=== PATIENT | female | born 1970 | race Caucasian/White ===

== ENCOUNTER 2016-12-25 22:45 | Emergency (ER) | payer MEDICAID ==
[2016-12-25] MEDS ORDERED: ACETAMINOPHEN 500 MG TABLET PO STA (23:01)
[2016-12-25] MEDS ORDERED: CYCLOBENZAPRINE 10 MG TABLET PO STA (23:01)
[2016-12-25] MEDS ORDERED: DEXAMETHASONE 10 MG/ML VIAL PO STA (23:01)
[2016-12-25] MEDS ORDERED: ACETAMINOPHEN 500 MG TABLET PO ONE (23:07)
[2016-12-25] MEDS ORDERED: CHERRY SYRUP 10 ML UDC PO ONE (23:08)
[2016-12-25] MEDS ORDERED: DEXAMETHASONE 10 MG/ML VIAL ONE (23:08)
[2016-12-25] MEDS ORDERED: CYCLOBENZAPRINE 10 MG TABLET PO ONE (23:08)
== END 2016-12-26 00:07 | disposition home or self-care (01) ==
DX: M54.42 Lumbago with sciatica, left side (principal); G89.29 Other chronic pain; M19.90 Unspecified osteoarthritis, unspecified site; M79.7 Fibromyalgia; I10 Essential (primary) hypertension; E11.9 Type 2 diabetes mellitus without complications; Z79.84 Long term (current) use of oral hypoglycemic drugs; Z86.711 Personal history of pulmonary embolism; F17.200 Nicotine dependence, unspecified, uncomplicated
CPT/HCPCS: 99283; A9270

== ENCOUNTER 2017-07-27 19:47 | Emergency (ER) | payer MEDICAID ==
--- NOTE | 2017-07-27 20:36 | ED Physician Documentation ---
History of Present Illness - Stated complaint Stated Complaint: LT LE PAIN - Chief complaint Chief Complaint: General - History obtained from History obtained from: Patient - History of Present Illness Timing: Yesterday Worsened by: palpation - Additonal information Additional information: c/o RLE focal redness, swelling, tenderness x 2 days without injury Review of Systems Constitutional: denies: Fever Skin: reports: Rash PD PAST MEDICAL HISTORY - Past Medical History Past Medical History: Yes Cardiovascular: Hypertension, Pulmonary embolism Respiratory: Other Endocrine/Autoimmune: Type 2 diabetes GI: GERD : None HEENT: None Psych: Depression, Anxiety, Bipolar disorder, Panic attacks, Post traumatic stress disorder Musculoskeletal: Osteoarthritis, Fibromyalgia Derm: None - Past Surgical History Past Surgical History: Yes 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, Other - Present Medications Home Medications: Ambulatory Orders Medication Instructions Recorded Confirmed Lisinopril [Zestril] 10 mg PO QPM 07/20/13 07/27/17 [place] Carbonate 900 mg PO QPM 07/20/13 07/27/17 Omeprazole 10 mg PO BID 07/20/13 07/27/17 Prazosin [Minipress] 8 mg PO QPM 07/20/13 07/27/17 DULoxetine [Cymbalta] 60 mg ORAL QPM 12/05/15 07/27/17 Simvastatin [Zocor] 10 mg PO DAILY 09/08/16 07/27/17 risperiDONE [RisperDAL] 1 mg PO DAILY 09/08/16 07/27/17 Amitriptyline [Elavil] 10 mg PO QPM 07/27/17 07/27/17 Clindamycin HCl 300 mg PO Q6HR 7 Days #28 capsule 07/27/17 Olanzapine [Olanzapine] 2.5 mg PO DAILY 07/27/17 07/27/17 Pregabalin [Lyrica] 150 mg PO TID 07/27/17 07/27/17 Propranolol HCl [Propranolol HCl 60 mg PO DAILY 07/27/17 07/27/17 ER] - Allergies Allergies/Adverse Reactions: Allergies Allergy/AdvReac Type Severity Reaction Status Date / Time Penicillins Allergy Severe Respiratory Verified 07/27/17 19:52 ketorolac tromethamine * Allergy Unknown Verified 07/27/17 19:52 [From Toradol] Sulfa (Sulfonamide Allergy Unknown Verified 07/27/17 19:52 Antibiotics) varenicline tartrate * AdvReac Severe Hallucinati Verified 07/27/17 19:52 [From Chantix] ons quetiapine fumarate * AdvReac Dizziness Verified 07/27/17 19:52 [From Seroquel] sertraline HCl * AdvReac Anxiety Verified 07/27/17 19:52 [From Zoloft] sucralose AdvReac SEVERE Verified 07/27/17 19:52 [From Splenda (sucralose)] CHANGE IN MOOD - Social History Does the pt smoke?: Yes Smoking Status: Current every day smoker Does the pt drink ETOH?: No Does the pt have substance abuse?: No - Immunizations Immunizations are current?: No Immunizations: TDAP >10years/unknown - POLST Patient has POLST: No POLST Status: Full Code PD ED PE NORMAL - Vitals Vital signs reviewed: Yes - General General: Alert and oriented X 3, No acute distress, Well developed/nourished PD ED PE EXPANDED - Extremities Extremities: Other (1-2 cm diameter induration on right posteromeidal aspect of calf with tenderness and erythema but no fluctuance or discharge) Results - Vitals Vitals: Oxygen O2 Source Room air PD MEDICAL DECISION MAKING - ED course Complexity details: considered differential, d/w patient Departure - Departure Disposition: 01 Home, Self Care Clinical Impression: Cellulitis Qualifiers: Site of cellulitis: extremity Site of cellulitis of extremity: lower extremity Laterality: right Qualified Code(s): L03.115 - Cellulitis of right lower limb Condition: Good Instructions: ED Infec Skin Cellulitis Follow-Up: Radha Cuenca DO [Primary Care Provider] - (3-5 days for recheck of the infection) Prescriptions: Clindamycin HCl 300 mg PO Q6HR 7 Days #28 capsule Discharge Date/Time: 07/27/17 21:08
[2017-07-27] MEDS ORDERED: CLINDAMYCIN 150 MG CAPSULE PO STA (20:50)
[2017-07-27] MEDS ORDERED: CLINDAMYCIN 150 MG CAPSULE PO ONE (21:01)
[2017-07-27 21:09] VITALS: BP 135/91
== END 2017-07-27 21:08 | disposition home or self-care (01) ==
LOC: ED 19:47
DX: L03.115 Cellulitis of right lower limb (principal); I10 Essential (primary) hypertension; E11.8 Type 2 diabetes mellitus with unspecified complications; Z86.711 Personal history of pulmonary embolism; F17.200 Nicotine dependence, unspecified, uncomplicated
CPT/HCPCS: 99283; A9270

== ENCOUNTER 2017-08-30 16:49 | Emergency (ER) | payer MEDICAID ==
[2017-08-30] MEDS ORDERED: DOXYCYCLINE 100 MG TABLET PO STA (18:08)
[2017-08-30] MEDS ORDERED: FLUCONAZOLE 100 MG TABLET PO STA (18:09)
--- NOTE | 2017-08-30 18:13 | ED Physician Documentation ---
PD HPI SKIN - Stated complaint Stated Complaint: ARMPIT/LEG BUMPS - Chief complaint Chief Complaint: Wound - History obtained from History obtained from: Patient - History of Present Illness Timing - onset: How many days ago (3) Timing - duration: Days (3) Timing - details: Gradual onset Pain level max: 6 Pain level now: 5 Improved by: Other (nothing) Worsened by (comment): COMMENT (nothing) Associated symptoms: No: Fever, Facial swelling Recently seen: Clinic - Additional information Additional information: Patient is a 47-year-old female presents to the emergency department with multiple complaints. She has a history of multiple recurrent abscesses, states that she recently finished a course of clindamycin for 2 small abscesses on her legs. Today she complains of swelling to the right axilla, left upper thigh and left perineal area. No fevers. No drainage. States that the swelling started 2-3 days ago. Also states that she believes the clindamycin gave her a yeast infection. States normally a dose of Diflucan works well for her. She also requests nystatin triamcinolone cream for her intertriginous folds. States normally her doctor rates as for her but she ran out. 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, Other - Present Medications Home Medications: Ambulatory Orders Medication Instructions Recorded Confirmed Lisinopril [Zestril] 10 mg PO QPM 07/20/13 08/30/17 [place] Carbonate 900 mg PO QPM 07/20/13 08/30/17 Omeprazole 10 mg PO BID 07/20/13 08/30/17 Prazosin [Minipress] 8 mg PO QPM 07/20/13 08/30/17 DULoxetine [Cymbalta] 60 mg ORAL QPM 12/05/15 08/30/17 Simvastatin [Zocor] 10 mg PO DAILY 09/08/16 08/30/17 risperiDONE [RisperDAL] 1 mg PO DAILY 09/08/16 08/30/17 Amitriptyline [Elavil] 10 mg PO QPM 07/27/17 08/30/17 Pregabalin [Lyrica] 150 mg PO TID 07/27/17 08/30/17 Propranolol HCl [Propranolol HCl 60 mg PO DAILY 07/27/17 08/30/17 ER] Doxycycline Hyclate 100 mg PO BID #20 capsule 08/30/17 Nystatin/Triamcin 1 applic TP BID PRN #1 oint...g. 08/30/17 [Nystatin-Triamcinolone Ointm] - Allergies Allergies/Adverse Reactions: Allergies Allergy/AdvReac Type Severity Reaction Status Date / Time Penicillins Allergy Severe Respiratory Verified 08/30/17 16:57 ketorolac tromethamine * Allergy Unknown Verified 08/30/17 16:57 [From Toradol] Sulfa (Sulfonamide Allergy Unknown Verified 08/30/17 16:57 Antibiotics) varenicline tartrate * AdvReac Severe Hallucinati Verified 08/30/17 16:57 [From Chantix] ons quetiapine fumarate * AdvReac Dizziness Verified 08/30/17 16:57 [From Seroquel] sertraline HCl * AdvReac Anxiety Verified 08/30/17 16:57 [From Zoloft] sucralose AdvReac SEVERE Verified 08/30/17 16:57 [From Splenda (sucralose)] CHANGE IN MOOD - Social History Does the pt smoke?: Yes Smoking Status: Current every day smoker Does the pt drink ETOH?: No Does the pt have substance abuse?: No - Immunizations Immunizations are current?: No Immunizations: TDAP >10years/unknown - POLST Patient has POLST: No POLST Status: Full Code PD ED PE NORMAL - Vitals Vital signs reviewed: Yes - General General: Alert and oriented X 3, No acute distress - HEENT HEENT: Moist mucous membranes - Neck Neck: Supple, no meningeal sign - Cardiac Cardiac: RRR, Strong equal pulses - Respiratory Respiratory: No respiratory distress - Abdomen Abdomen: Soft, Non tender, Non distended - Female 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 No fluctance, no pointing, no drainage. [id number] area to anterior, prox L thigh, no fluctuance, pointing or drainage. 1x0.5cm perineal area induration without fluctuance, pointing or drainage. ) - Neuro Neuro: Alert and oriented X 3 - Psych Psych: Normal mood, Normal affect Results - Vitals Vitals: Vital Signs - 24 hr 08/30/17 08/30/17 16:52 18:20 Temperature 36.3 C L 36.8 C Heart Rate 90 88 Respiratory 18 16 Rate Blood Pressure 122/85 H O2 Saturation 97 98 Oxygen O2 Source Room air PD MEDICAL DECISION MAKING - ED course Complexity details: reviewed old records, considered differential, d/w patient ED course: Patient is a 47-year-old female presents to the emergency department with multiple issues. All areas of induration or ultrasound of the bedside none revealed an abscess to drain. Patient also was given Diflucan for a vaginal yeast infection following clindamycin use. She states doxycycline has worked well for her MRSA in the past and this was started in the emergency department. Will also place on doxycycline for home. She is otherwise well-appearing, nontoxic. Afebrile. Patient counseled that these may coalescent abscesses that do need to be drained, but they do not need to be drained at this time. Patient counseled regarding signs and symptoms for which I believe and urgent re -evaluation would be necessary. Patient with good understanding of and agreement to plan and is comfortable going home at this time This document was made in part using voice recognition software. While efforts are made to proofread this document, sound alike and grammatical errors may occur. Departure - Departure Disposition: 01 Home, Self Care Clinical Impression: Abscess, Yeast infection Condition: Good Instructions: ED Staph Infec Abx Tx Only Follow-Up: Radha Cuenca DO [Primary Care Provider] - Within 3 Days (for recheck of wounds) Prescriptions: Doxycycline Hyclate 100 mg PO BID #20 capsule Nystatin/Triamcin [Nystatin-Triamcinolone Ointm] 1 applic TP BID PRN #1 oint...g. PRN Reason: rash Comments: Take all antibiotics until gone. Return if you worsen. Discharge Date/Time: 08/30/17 18:29
[2017-08-30 18:21] VITALS: BP 122/85
[2017-08-30] MEDS ORDERED: DOXYCYCLINE 100 MG TABLET PO ONE (18:28)
[2017-08-30] MEDS ORDERED: FLUCONAZOLE 100 MG TABLET ONE (18:28)
== END 2017-08-30 18:29 | disposition home or self-care (01) ==
LOC: ED 16:49
DX: L02.411 Cutaneous abscess of right axilla (principal); L02.416 Cutaneous abscess of left lower limb; L02.215 Cutaneous abscess of perineum; B37.3 Candidiasis of vulva and vagina; Z86.14 Personal history of Methicillin resistant Staphylococcus aureus infection; I10 Essential (primary) hypertension; E11.9 Type 2 diabetes mellitus without complications; K21.9 Gastro-esophageal reflux disease without esophagitis; M79.7 Fibromyalgia; M19.90 Unspecified osteoarthritis, unspecified site; Z86.711 Personal history of pulmonary embolism; F17.200 Nicotine dependence, unspecified, uncomplicated
CPT/HCPCS: 99283; A9270

== ENCOUNTER 2017-09-03 12:40 | Emergency (ER) | payer MEDICAID ==
--- NOTE | 2017-09-03 15:18 | ED Physician Documentation ---
PD HPI SKIN - Stated complaint Stated Complaint: ARMPIT PX - Chief complaint Chief Complaint: Wound - History obtained from History obtained from: Patient - History of Present Illness Timing - onset: How many weeks ago (1) Timing - duration: Weeks (1) Timing - details: Gradual onset, Still present Location: RUE Quality / character: Painful, Raised, Swelling. No: Draining Associated symptoms: Fever Similar symptoms before: Diagnosis (staph abscess) Recently seen: Emergency Dept - Additional information Additional information: 47-year-old female was seen in the emergency department here 4 days ago with staph abscesses that were not ripe she was placed on doxycycline as she has recently finished a course of clindamycin and this did not clear up the lesion in her right axilla. She did have ultrasound done that day demonstrating no evidence of fluid collections and she has not responded to the doxycycline. Review of Systems Constitutional: reports: Fever Eyes: denies: Decreased vision Ears: denies: Ear pain Nose: denies: Congestion Throat: denies: Sore throat Cardiac: denies: Chest pain / pressure Respiratory: denies: Cough GI: denies: Abdominal Pain, Nausea, Vomiting : denies: Dysuria, Frequency Skin: reports: Lesions. denies: Rash Musculoskeletal: reports: Extremity pain. 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, Other - Present Medications Home Medications: Ambulatory Orders Medication Instructions Recorded Confirmed Lisinopril [Zestril] 10 mg PO QPM 07/20/13 09/03/17 [place] Carbonate 900 mg PO QPM 07/20/13 09/03/17 Omeprazole 10 mg PO BID 07/20/13 08/30/17 Prazosin [Minipress] 8 mg PO QPM 07/20/13 09/03/17 DULoxetine [Cymbalta] 60 mg ORAL QPM 12/05/15 09/03/17 Simvastatin [Zocor] 10 mg PO DAILY 09/08/16 09/03/17 risperiDONE [RisperDAL] 1 mg PO DAILY 09/08/16 09/03/17 Pregabalin [Lyrica] 150 mg PO TID 07/27/17 09/03/17 Propranolol HCl [Propranolol HCl 60 mg PO DAILY 07/27/17 09/03/17 ER] Doxycycline Hyclate 100 mg PO BID #20 capsule 08/30/17 09/03/17 Nystatin/Triamcin 1 applic TP BID PRN #1 oint...g. 08/30/17 09/03/17 [Nystatin-Triamcinolone Ointm] Nortriptyline HCl 50 mg PO DAILY 09/03/17 09/03/17 - Allergies Allergies/Adverse Reactions: Allergies Allergy/AdvReac Type Severity Reaction Status Date / Time Penicillins Allergy Severe Respiratory Verified 09/03/17 12:47 ketorolac tromethamine * Allergy Unknown Verified 09/03/17 12:47 [From Toradol] Sulfa (Sulfonamide Allergy Unknown Verified 09/03/17 12:47 Antibiotics) varenicline tartrate * AdvReac Severe Hallucinati Verified 09/03/17 12:47 [From Chantix] ons quetiapine fumarate * AdvReac Dizziness Verified 09/03/17 12:47 [From Seroquel] sertraline HCl * AdvReac Anxiety Verified 09/03/17 12:47 [From Zoloft] sucralose AdvReac SEVERE Verified 09/03/17 12:47 [From Splenda (sucralose)] CHANGE IN MOOD - Social History Does the pt smoke?: Yes Smoking Status: Current every day smoker Does the pt drink ETOH?: No Does the pt have substance abuse?: No - Immunizations Immunizations are current?: No Immunizations: TDAP >10years/unknown - POLST Patient has POLST: No POLST Status: Full Code PD ED PE NORMAL - Vitals Vital signs reviewed: Yes (Hypertensive) - General General: No acute distress, Well developed/nourished - HEENT HEENT: Atraumatic, PERRL, EOMI - Neck Neck: Supple, no meningeal sign - Respiratory Respiratory: No respiratory distress - Derm Derm: Normal color, Warm and dry - Extremities Extremities: No deformity, Other (There is a tender indurated area in the right axilla that appears full there is no fluctuance to the area the area is tender. With bedside ultrasound the area is imaged and begins to drain spontaneously there is no deep fluid collection.) - Neuro Neuro: No motor deficit, No sensory deficit Eye Opening: Spontaneous Motor: Obeys Commands Verbal: Oriented GCS Score: 15 - Psych Psych: Normal mood, Normal affect Results - Vitals Vitals: Vital Signs - 24 hr 09/03/17 12:43 Temperature 35.8 C L Heart Rate 90 Respiratory 16 Rate Blood Pressure 143/103 H O2 Saturation 98 Oxygen O2 Source Room air Procedures - Abscess I&D (location) right axilla Preparation: Confirmed with ultrasound, Chlorhexadine, Lidocaine 1% Incision: Incised with scalpel, Purulent drainage (copious amounts of pus drained.), Loculations broken, Irrigated, Culture obtained Other: Pt tolerated well, Dressing applied, Antibiotic prescribed PD MEDICAL DECISION MAKING - ED course Complexity details: reviewed old records, reviewed results, re-evaluated patient , considered differential, d/w patient ED course: 47-year-old female with multiple staph abscesses has a ripened abscess in the right axilla this is incised and drained with good relief of pain to the patient. She did require Percocet 2 prior to the procedure with good results of her being able to tolerate this procedure. Departure - Departure Disposition: 01 Home, Self Care Clinical Impression: Abscess Condition: Stable Instructions: ED Abscess IandD Follow-Up: Radha Cuenca DO [Primary Care Provider] - Comments: Continue the doxycycline as previously and expect resolution of symptoms.
[2017-09-03] MEDS: HYDROcod/ACETAM 5/325 MG TABLET PO STA ×2 (15:20→15:23)
[2017-09-03] MEDS ORDERED: oxyCOD/ACETAMIN 5 MG/325 MG TABLET PO STA (15:23)
[2017-09-03] MEDS ORDERED: HYDROcod/ACETAM 5/325 MG TABLET ONE (15:24)
[2017-09-03] MEDS ORDERED: oxyCOD/ACETAMIN 5 MG/325 MG TABLET PO ONE (15:31)
[2017-09-03] MEDS ORDERED: LIDOCAINE 1% 2 ML VIAL ONE (15:57)
[2017-09-03 16:22] VITALS: BP 119/81
== END 2017-09-03 16:28 | disposition home or self-care (01) ==
LOC: ED 12:40
DX: L02.411 Cutaneous abscess of right axilla (principal); B95.8 Unspecified staphylococcus as the cause of diseases classified elsewhere; I10 Essential (primary) hypertension; E11.9 Type 2 diabetes mellitus without complications; Z86.711 Personal history of pulmonary embolism
CPT/HCPCS: 10060; 99283; A9270

== ENCOUNTER 2017-11-06 19:29 | Emergency (ER) | payer MEDICAID ==
[2017-11-06] MEDS ORDERED: BUFFERED LIDOCAINE 10 ML SYRINGE SUBQ STA (20:14)
--- NOTE | 2017-11-06 20:25 | ED Physician Documentation ---
History of Present Illness - Stated complaint Stated Complaint: SORE - Chief complaint Chief Complaint: General - History obtained from History obtained from: Patient - History of Present Illness Timing: Yesterday (Little over a days worth of an increasingly large painful lesion on the left labia consistent with an abscess. 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, Other - Present Medications Home Medications: Ambulatory Orders Medication Instructions Recorded Confirmed Lisinopril [Zestril] 10 mg PO QPM 07/20/13 09/03/17 [place] Carbonate 900 mg PO QPM 07/20/13 09/03/17 Omeprazole 10 mg PO BID 07/20/13 08/30/17 Prazosin [Minipress] 8 mg PO QPM 07/20/13 09/03/17 DULoxetine [Cymbalta] 60 mg ORAL QPM 12/05/15 09/03/17 Simvastatin [Zocor] 10 mg PO DAILY 09/08/16 09/03/17 risperiDONE [RisperDAL] 1 mg PO DAILY 09/08/16 09/03/17 Pregabalin [Lyrica] 150 mg PO TID 07/27/17 09/03/17 Propranolol HCl [Propranolol HCl 60 mg PO DAILY 07/27/17 09/03/17 ER] Doxycycline Hyclate 100 mg PO BID #20 capsule 08/30/17 09/03/17 Nystatin/Triamcin 1 applic TP BID PRN #1 oint...g. 08/30/17 09/03/17 [Nystatin-Triamcinolone Ointm] Nortriptyline HCl 50 mg PO DAILY 09/03/17 09/03/17 Doxycycline Hyclate 100 mg PO BID #14 tablet 11/06/17 Fluconazole [Diflucan] 150 mg PO ONCE #1 tablet 11/06/17 Oxycodone HCl/Acetaminophen 1 - 2 tab PO Q4H PRN #10 tablet 11/06/17 [Percocet 5-325 mg Tablet] - Allergies Allergies/Adverse Reactions: Allergies Allergy/AdvReac Type Severity Reaction Status Date / Time Penicillins Allergy Severe Respiratory Verified 11/06/17 19:41 ketorolac tromethamine * Allergy Unknown Verified 11/06/17 19:41 [From Toradol] Sulfa (Sulfonamide Allergy Unknown Verified 11/06/17 19:41 Antibiotics) varenicline tartrate * AdvReac Severe Hallucinati Verified 11/06/17 19:41 [From Chantix] ons quetiapine fumarate * AdvReac Dizziness Verified 11/06/17 19:41 [From Seroquel] sertraline HCl * AdvReac Anxiety Verified 11/06/17 19:41 [From Zoloft] sucralose AdvReac SEVERE Verified 11/06/17 19:41 [From Splenda (sucralose)] CHANGE IN MOOD - Social History Does the pt smoke?: Yes Smoking Status: Current every day smoker Does the pt drink ETOH?: No Does the pt have substance abuse?: No - Immunizations Immunizations are current?: No Immunizations: TDAP >10years/unknown - POLST Patient has POLST: No POLST Status: Full Code PD ED PE NORMAL - Vitals Vital signs reviewed: Yes - General General: Alert and oriented X 3, No acute distress - Female 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 No: Packed Other: Pt tolerated well, Dressing applied Departure - Departure Disposition: Home, Self Care Clinical Impression: Abscess Condition: Good Record reviewed to determine appropriate education?: Yes Instructions: ED Abscess IandD Prescriptions: Doxycycline Hyclate 100 mg PO BID #14 tablet Fluconazole [Diflucan] 150 mg PO ONCE #1 tablet Oxycodone HCl/Acetaminophen [Percocet 5-325 mg Tablet] 1 - 2 tab PO Q4H PRN #10 tablet PRN Reason: Pain Comments: Follow-up with your doctor for wound check on Friday. We are performing a wound culture, the results should be done in 48-72 hours. If antibiotic change is necessary we will call you. Return if worse in the meantime, especially if you develop increased pain, fevers, cannot keep down the medication. Otherwise follow-up with your physician in approximately 2-3 days. Your blood pressure was elevated today on check into the emergency department. This does not mean that you have hypertension, it is a common phenomenon to come to the emergency department and have elevated blood pressure. I recommend that you see your primary care physician within the week to have it rechecked when you are feeling better. Do not drink or drive while taking narcotic pain medication. Note that many narcotic pain relievers also contain Tylenol/acetaminophen. Please ensure that your total dose of acetaminophen from all sources does not exceed 3 g (3000 mg) per day. You may get constipated while on this medication. Take a stool softener such as Colace twice a day while you are on it. Also add an [id number] laxative such as senna or MiraLAX on any day that you do not have a bowel movement. If you received a narcotic pain medication or sedative while in the emergency department, do not drive for the next 24 hours.
[2017-11-06] MEDS ORDERED: oxyCODONE/ACET 5/325 Prepack 4 PO STA (20:43)
[2017-11-06] MEDS ORDERED: DOXYCYCLINE 100 MG TABLET PO STA (20:43)
[2017-11-06 20:52] VITALS: BP 135/93
== END 2017-11-06 21:10 | disposition home or self-care (01) ==
LOC: ED 19:29
DX: N76.4 Abscess of vulva (principal); I10 Essential (primary) hypertension; E11.9 Type 2 diabetes mellitus without complications; K21.9 Gastro-esophageal reflux disease without esophagitis; M79.7 Fibromyalgia; M19.90 Unspecified osteoarthritis, unspecified site; Z86.711 Personal history of pulmonary embolism; F17.200 Nicotine dependence, unspecified, uncomplicated
CPT/HCPCS: 56405; 87070; 87181; 87205; 99283; A9270

== ENCOUNTER 2017-12-05 15:09 | Outpatient (CLI) | payer MEDICAID | END 2017-12-05 15:10 | disposition critical access hospital (66) | LOC: EMS 15:09 | PROVIDERS: ATTEND Surgery | DX: M54.9 Dorsalgia, unspecified (principal) | CPT/HCPCS: A0425; A0429 ==

== ENCOUNTER 2017-12-05 15:27 | Emergency (ER) | payer MEDICAID ==
--- NOTE | 2017-12-05 16:16 | ED Physician Documentation ---
PD HPI BACK PAIN - Stated complaint Stated Complaint: BACK PX - Chief complaint Chief Complaint: Back Pain - History obtained from History obtained from: Patient - History of Present Illness Timing - onset: Today Timing - details: Still present Location: Lower, Left Quality: Spasm Associated symptoms: No: Fever, Weakness, Numbness, Incontinent of urine Worsened by: Movement Similar symptoms before: Diagnosis (Reports history of chronic low back pain, for which she takes diazepam 5 mg 3 times daily.) - Treatment prior to arrival Treatment prior to arrival: diazepam. - Additional information Additional information: The patient is a 47-year-old female with a history of diabetes and chronic low back pain, who presents with muscle spasms in her left lower back, radiating to her left leg. Her symptoms started this morning, and continue despite her daily treatment with diazepam. She denies fever, urinary incontinence, numbness or weakness. She reports having fallen 3 days ago, impacting her left side. Review of Systems Constitutional: denies: Fever Nose: denies: Congestion Throat: denies: Sore throat Cardiac: denies: Chest pain / pressure Respiratory: denies: Dyspnea, Cough GI: denies: Abdominal Pain, Nausea, Vomiting : denies: Dysuria, Incontinent Skin: denies: Rash Musculoskeletal: reports: Back pain. 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, Other - Present Medications Home Medications: Ambulatory Orders Medication Instructions Recorded Confirmed Lisinopril [Zestril] 10 mg PO QPM 07/20/13 09/03/17 [place] Carbonate 900 mg PO QPM 07/20/13 09/03/17 Omeprazole 10 mg PO BID 07/20/13 08/30/17 Prazosin [Minipress] 8 mg PO QPM 07/20/13 09/03/17 DULoxetine [Cymbalta] 60 mg ORAL QPM 12/05/15 09/03/17 Simvastatin [Zocor] 10 mg PO DAILY 09/08/16 09/03/17 risperiDONE [RisperDAL] 1 mg PO DAILY 09/08/16 09/03/17 Pregabalin [Lyrica] 150 mg PO TID 07/27/17 09/03/17 Propranolol HCl [Propranolol HCl 60 mg PO DAILY 07/27/17 09/03/17 ER] Doxycycline Hyclate 100 mg PO BID #20 capsule 08/30/17 09/03/17 Nystatin/Triamcin 1 applic TP BID PRN #1 oint...g. 08/30/17 09/03/17 [Nystatin-Triamcinolone Ointm] Nortriptyline HCl 50 mg PO DAILY 09/03/17 09/03/17 Doxycycline Hyclate 100 mg PO BID #14 tablet 11/06/17 Fluconazole [Diflucan] 150 mg PO ONCE #1 tablet 11/06/17 Oxycodone HCl/Acetaminophen 1 - 2 tab PO Q4H PRN #10 tablet 11/06/17 [Percocet 5-325 mg Tablet] Cyclobenzaprine [Flexeril] 10 mg PO TID PRN #20 tablet 12/05/17 - Allergies Allergies/Adverse Reactions: Allergies Allergy/AdvReac Type Severity Reaction Status Date / Time Penicillins Allergy Severe Respiratory Verified 12/05/17 15:36 ketorolac tromethamine * Allergy Unknown Verified 12/05/17 15:36 [From Toradol] Sulfa (Sulfonamide Allergy Unknown Verified 12/05/17 15:36 Antibiotics) varenicline tartrate * AdvReac Severe Hallucinati Verified 12/05/17 15:36 [From Chantix] ons quetiapine fumarate * AdvReac Dizziness Verified 12/05/17 15:36 [From Seroquel] sertraline HCl * AdvReac Anxiety Verified 12/05/17 15:36 [From Zoloft] sucralose AdvReac SEVERE Verified 12/05/17 15:36 [From Splenda (sucralose)] CHANGE IN MOOD - Social History Does the pt smoke?: Yes Smoking Status: Current every day smoker Does the pt drink ETOH?: No Does the pt have substance abuse?: No - Immunizations Immunizations are current?: No Immunizations: TDAP >10years/unknown - POLST Patient has POLST: No POLST Status: Full Code PD ED PE NORMAL - Vitals Vital signs reviewed: Yes (normal) - General General: Alert and oriented X 3, Other (Drowsy, but easily awakens. Overweight. ) - HEENT HEENT: Atraumatic - Neck Neck: No bony TTP, No adenopathy - Cardiac Cardiac: RRR, No murmur - Respiratory Respiratory: No respiratory distress, Clear bilaterally - Abdomen Abdomen: Soft, Non tender - Back Back: No CVA TTP, No spinal TTP, Other (There is tenderness to palpation in the left paralumbar musculature, with muscle spasms detected. There is no tenderness to palpation along the spinous processes.) - Derm Derm: No rash - Extremities Extremities: No tenderness to palpate, No edema, No calf tenderness / cord, Other (Straight leg raise test is negative bilaterally.) - Neuro Neuro: Alert and oriented X 3, No motor deficit, No sensory deficit, Other ( Deep tendon reflexes are 1+ and equal bilaterally at the patellar and Achilles tendons.) Results - Vitals Vitals: Oxygen O2 Source Room air - Labs Labs: Laboratory Tests 12/05/17 12/05/17 17:08 17:40 POC Whole Bld Glucose 301 H Urine Color YELLOW Urine Clarity CLEAR Urine pH 6.0 Ur Specific [place] 1.025 Urine Protein NEGATIVE Urine Glucose (UA) 500 H Urine Ketones NEGATIVE Urine Occult Blood NEGATIVE Urine Nitrite NEGATIVE Urine Bilirubin NEGATIVE Urine Urobilinogen 0.2 (NORMAL) Ur Leukocyte Esterase NEGATIVE Ur Microscopic Review NOT INDICATED Urine Culture Comments NOT INDICATED PD MEDICAL DECISION MAKING - ED course Complexity details: reviewed old records, reviewed results, re-evaluated patient , considered differential, d/w patient ED course: The patient's presentation is consistent with acute exacerbation of low back pain, with muscle spasms. There is no evidence to suggest an acute vertebral injury, epidural abscess, cauda equina syndrome, or spinal stenosis. Urinalysis is negative except for elevated glucosuria. Fingerstick blood sugar is elevated at 301. Given the patient's current drowsiness, no further medication was administered in the emergency department. I discussed with her symptomatic treatment, treatment for her hyperglycemia, outpatient follow-up, as well as potentially worrisome signs or symptoms that should prompt reevaluation is needed emergency department. She is being discharged with prescription for Flexeril. Departure - Departure Disposition: 01 Home, Self Care Clinical Impression: Spasm of back muscles Diabetes mellitus with hyperglycemia Qualifiers: Diabetes mellitus type: type 2 Diabetes mellitus halfway insulin use: without halfway use Qualified Code(s): E11.65 - Type 2 diabetes mellitus with hyperglycemia Condition: Stable Instructions: ED Spasm Back No Trauma Follow-Up: Radha Cuenca DO [Primary Care Provider] - Prescriptions: Cyclobenzaprine [Flexeril] 10 mg PO TID PRN #20 tablet PRN Reason: Spasms Comments: Apply ice pack to your lower back intermittently for the next 3 days. You can take Robaxin as prescribed if needed for muscle spasms. Follow up with your primary physician within 1-2 weeks. Call to schedule an appointment. Avoid eating candy or other sugary foods. Return to the emergency department if you develop increasing back pain, urinary incontinence, or otherwise worsening symptoms. Discharge Date/Time: 12/05/17 17:57
[2017-12-05 17:13] LABS: BILIRUBIN,URINE NEGATIVE (NEGATIVE); GLUCOSE, URINE (UA) 500 mg/dL (NEGATIVE); KETONES,URINE (UA) NEGATIVE (NEGATIVE); LEUKOCYTE ESTERASE, URINE NEGATIVE (NEGATIVE); NITRITE,URINE NEGATIVE (NEGATIVE); OCCULT BLOOD,URINE NEGATIVE (NEGATIVE); PROTEIN,URINE NEGATIVE (NEGATIVE); UROBILINOGEN,URINE 0.2 (NORMAL) E.U./dL (NORMAL)
[2017-12-05 17:15] LABS: CLARITY,URINE CLEAR (CLEAR)
[2017-12-05 17:49] VITALS: BP 124/88
== END 2017-12-05 17:57 | disposition home or self-care (01) ==
LOC: EDUNIT# → ED 15:27
DX: M62.830 Muscle spasm of back (principal); E11.65 Type 2 diabetes mellitus with hyperglycemia; I10 Essential (primary) hypertension; F31.9 Bipolar disorder, unspecified; Z86.711 Personal history of pulmonary embolism; F17.200 Nicotine dependence, unspecified, uncomplicated
CPT/HCPCS: 81001; 81003; 87086; 99283; 99284

== ENCOUNTER 2018-01-29 16:47 | Emergency (ER) | payer MEDICAID ==
[2018-01-29] MEDS ORDERED: PHENAZOPYRIDINE 100 MG TABLET PO STA (17:00)
--- NOTE | 2018-01-29 17:02 | ED Physician Documentation ---
History of Present Illness - Stated complaint Stated Complaint: FEMALE /R FOOT PX - Chief complaint Chief Complaint: General - History obtained from History obtained from: Patient - History of Present Illness Timing: Other (She has 2 chief complaints, first she has had urinary dysuria and frequency today without flank pain fevers or nausea. Secondly she has had lateral right foot pain for last 2 weeks without specific trauma, it hurts to walk. She is able to walk though. She has not had trouble with that foot before. 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, Other - Present Medications Home Medications: Ambulatory Orders Medication Instructions Recorded Confirmed Lisinopril [Zestril] 10 mg PO QPM 07/20/13 09/03/17 [place] Carbonate 900 mg PO QPM 07/20/13 09/03/17 Omeprazole 10 mg PO BID 07/20/13 08/30/17 Prazosin [Minipress] 8 mg PO QPM 07/20/13 09/03/17 DULoxetine [Cymbalta] 60 mg ORAL QPM 12/05/15 09/03/17 Simvastatin [Zocor] 10 mg PO DAILY 09/08/16 09/03/17 risperiDONE [RisperDAL] 1 mg PO DAILY 09/08/16 09/03/17 Pregabalin [Lyrica] 150 mg PO TID 07/27/17 09/03/17 Propranolol HCl [Propranolol HCl 60 mg PO DAILY 07/27/17 09/03/17 ER] Nystatin/Triamcin 1 applic TP BID PRN #1 oint...g. 08/30/17 09/03/17 [Nystatin-Triamcinolone Ointm] Nortriptyline HCl 50 mg PO DAILY 09/03/17 09/03/17 Oxycodone HCl/Acetaminophen 1 - 2 tab PO Q4H PRN #10 tablet 11/06/17 [Percocet 5-325 mg Tablet] Cyclobenzaprine [Flexeril] 10 mg PO TID PRN #20 tablet 12/05/17 Nitrofurantoin Monohyd/M-Cryst 1 tab PO BID 5 Days capsule 01/29/18 [Macrobid 100 mg Capsule] Phenazopyridine HCl [Pyridium] 200 mg PO TID #6 tablet 01/29/18 - Allergies Allergies/Adverse Reactions: Allergies Allergy/AdvReac Type Severity Reaction Status Date / Time Penicillins Allergy Severe Respiratory Verified 01/29/18 16:56 ketorolac tromethamine * Allergy Unknown Verified 01/29/18 16:56 [From Toradol] Sulfa (Sulfonamide Allergy Unknown Verified 01/29/18 16:56 Antibiotics) varenicline tartrate * AdvReac Severe Hallucinati Verified 01/29/18 16:56 [From Chantix] ons quetiapine fumarate * AdvReac Dizziness Verified 01/29/18 16:56 [From Seroquel] sertraline HCl * AdvReac Anxiety Verified 01/29/18 16:56 [From Zoloft] sucralose AdvReac SEVERE Verified 01/29/18 16:56 [From Splenda (sucralose)] CHANGE IN MOOD - Social History Does the pt smoke?: Yes Smoking Status: Current every day smoker Does the pt drink ETOH?: No Does the pt have substance abuse?: No - Immunizations Immunizations are current?: No Immunizations: TDAP >10years/unknown - POLST Patient has POLST: No POLST Status: Full Code PD ED PE NORMAL - Vitals Vital signs reviewed: Yes - General General: Alert and oriented X 3, No acute distress - Abdomen Abdomen: Soft, Non tender - Back Back: No CVA TTP, No spinal TTP - Extremities Extremities: Other (She is tender over the lateral right foot, kind of over the distal fifth metatarsal and pain with inversion of the foot consistent mostly with a tendinitis. There is no warmth or redness. No limited range of motion.) - Neuro Neuro: Alert and oriented X 3, Normal speech Results - Vitals Vitals: Vital Signs - 24 hr 01/29/18 01/29/18 16:51 18:14 Temperature 36.8 C 36.7 C Heart Rate 88 81 Respiratory 16 16 Rate Blood Pressure 128/88 H 138/98 H O2 Saturation 97 97 Oxygen O2 Source Room air - Labs Labs: Laboratory Tests 01/29/18 01/29/18 17:08 17:53 POC Whole Bld Glucose 220 H Urine Color YELLOW Urine Clarity SL. CLOUDY Urine pH 6.0 Ur Specific [place] 1.025 Urine Protein 30 H Urine Glucose (UA) 100 H Urine Ketones TRACE Urine Occult Blood LARGE H Urine Nitrite NEGATIVE Urine Bilirubin NEGATIVE Urine Urobilinogen 0.2 (NORMAL) Ur Leukocyte Esterase NEGATIVE Urine RBC 11-25 H Urine WBC 4-5 Ur Squamous Epith Cells RARE Squamous Urine Bacteria None Seen Ur Microscopic Review INDICATED Urine Culture Comments NOT INDICATED - Rads (name of study) R foot 3v Radiology: EMP read contemporaneously (Cortical thickening of the third and fourth metatarsal diaphysis consistent with stress response.) PD MEDICAL DECISION MAKING - ED course ED course: She has kind of typical cystitis but an atypical urine, also stress fracture of the right foot, she refused to be nonweightbearing or wear a boot, we settled on a shoe, she understands that her recovery may be prolonged and incomplete since she is not following standard of care. 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 Return if worse. Discharge Date/Time: 01/29/18 18:15
[2018-01-29 17:11] LABS: BILIRUBIN,URINE NEGATIVE (NEGATIVE); GLUCOSE, URINE (UA) 100 mg/dL (NEGATIVE); KETONES,URINE (UA) TRACE mg/dL (NEGATIVE); LEUKOCYTE ESTERASE, URINE NEGATIVE (NEGATIVE); NITRITE,URINE NEGATIVE (NEGATIVE); OCCULT BLOOD,URINE LARGE (NEGATIVE); PROTEIN,URINE 30 mg/dL (NEGATIVE); UROBILINOGEN,URINE 0.2 (NORMAL) E.U./dL (NORMAL)
[2018-01-29 17:12] LABS: CLARITY,URINE SL. CLOUDY (CLEAR)
[2018-01-29 17:30] LABS: BACTERIA,URINE None Seen /HPF (None Seen); SQUAMOUS EPITHELIAL CELL,UR RARE Squamous (<= Few)
--- NOTE | 2018-01-29 18:01 | XRAY Preliminary Report ---
Exam: XR FOOT 3 VIEW RT IMPRESSION: 1. No acute fracture. 2. Cortical thickening of the third and fourth metatarsal diaphysis suggesting a chronic stress respo nse. [facility] SITE ID: [id number]
--- NOTE | 2018-01-29 18:01 | XRAY Report ---
EXAM: RIGHT FOOT RADIOGRAPHY EXAM DATE: 01/29/2018 05:43 PM. CLINICAL HISTORY: Foot pain, lateral. COMPARISON: None. TECHNIQUE: 3 views. FINDINGS: Bones: There is cortical thickening of the third and fourth metatarsal diaphysis. There is no acute f racture. Joints: Joint space and alignment appears satisfactory. Soft Tissues: There is a small plantar calcaneal spur. IMPRESSION: 1. No acute fracture. 2. Cortical thickening of the third and fourth metatarsal diaphysis suggesting a chronic stress respo nse. [facility] Referring Provider Line: [phone] SITE ID: [id number]
[2018-01-29] MEDS ORDERED: NITROFURANTOIN MACRO 100 MG CAPSULE PO STA (18:03)
[2018-01-29 18:16] VITALS: BP 138/98
== END 2018-01-29 18:15 | disposition home or self-care (01) ==
LOC: ED 16:47
DX: N30.90 Cystitis, unspecified without hematuria (principal); S92.901A Unspecified fracture of right foot, initial encounter for closed fracture; X58.XXXA Exposure to other specified factors, initial encounter; I10 Essential (primary) hypertension; E11.9 Type 2 diabetes mellitus without complications; Z86.711 Personal history of pulmonary embolism
CPT/HCPCS: 73630; 81001; 99283; 99284; A9270; 81003; 87086

== ENCOUNTER 2018-02-13 16:09 | Emergency (ER) | payer MEDICAID ==
[2018-02-13 16:18] VITALS: BP 121/88
[2018-02-13] MEDS ORDERED: LIDOCAINE 2%-EPI 1:100000 20 ML MDV SUBQ STA (16:56)
--- NOTE | 2018-02-13 16:57 | ED Physician Documentation ---
History of Present Illness - Stated complaint Stated Complaint: RT ARM PIT LUMP - Chief complaint Chief Complaint: Wound - History obtained from History obtained from: Patient - History of Present Illness Timing: Yesterday Pain level max: 9 Pain level now: 9 Improved by: nothing Worsened by: palpation, movement - Additonal information Additional information: States R axillary abscess x 2 days. No fevers. No vomiting. 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, Other - Present Medications Home Medications: Ambulatory Orders Medication Instructions Recorded Confirmed Lisinopril [Zestril] 10 mg PO QPM 07/20/13 09/03/17 [place] Carbonate 900 mg PO QPM 07/20/13 09/03/17 Omeprazole 10 mg PO BID 07/20/13 08/30/17 Prazosin [Minipress] 8 mg PO QPM 07/20/13 09/03/17 DULoxetine [Cymbalta] 60 mg ORAL QPM 12/05/15 09/03/17 Simvastatin [Zocor] 10 mg PO DAILY 09/08/16 09/03/17 risperiDONE [RisperDAL] 1 mg PO DAILY 09/08/16 09/03/17 Pregabalin [Lyrica] 150 mg PO TID 07/27/17 09/03/17 Propranolol HCl [Propranolol HCl 60 mg PO DAILY 07/27/17 09/03/17 ER] Nystatin/Triamcin 1 applic TP BID PRN #1 oint...g. 08/30/17 09/03/17 [Nystatin-Triamcinolone Ointm] Nortriptyline HCl 50 mg PO DAILY 09/03/17 09/03/17 Cyclobenzaprine [Flexeril] 10 mg PO TID PRN #20 tablet 12/05/17 Nitrofurantoin Monohyd/M-Cryst 1 tab PO BID 5 Days capsule 01/29/18 [Macrobid 100 mg Capsule] ARIPiprazole [Abilify] mg PO DAILY 02/13/18 Doxycycline Hyclate 100 mg PO BID #14 capsule 02/13/18 Insulin Glargine [Lantus Solostar] 22 unit 02/13/18 - Allergies Allergies/Adverse Reactions: Allergies Allergy/AdvReac Type Severity Reaction Status Date / Time Penicillins Allergy Severe Respiratory Verified 02/13/18 16:18 ketorolac tromethamine * Allergy Unknown Verified 02/13/18 16:18 [From Toradol] Sulfa (Sulfonamide Allergy Unknown Verified 02/13/18 16:18 Antibiotics) varenicline tartrate * AdvReac Severe Hallucinati Verified 02/13/18 16:18 [From Chantix] ons quetiapine fumarate * AdvReac Dizziness Verified 02/13/18 16:18 [From Seroquel] sertraline HCl * AdvReac Anxiety Verified 02/13/18 16:18 [From Zoloft] sucralose AdvReac SEVERE Verified 02/13/18 16:18 [From Splenda (sucralose)] CHANGE IN MOOD - Social History Does the pt smoke?: Yes Smoking Status: Current every day smoker Does the pt drink ETOH?: No Does the pt have substance abuse?: No - Immunizations Immunizations are current?: Yes Immunizations: TDAP >10years/unknown - POLST Patient has POLST: No POLST Status: Full Code PD ED PE NORMAL - Vitals Vital signs reviewed: Yes - General General: Alert and oriented X 3, No acute distress - Derm Derm: Warm and dry - Extremities Extremities: Other (R axilla - 2x2cm indurated area with erythema. NVI) - Neuro Neuro: Alert and oriented X 3 - Psych Psych: Normal mood, Normal affect Results - Vitals Vitals: Vital Signs - 24 hr 02/13/18 16:16 Temperature 36.7 C Heart Rate 85 Respiratory 16 Rate Blood Pressure 121/88 H O2 Saturation 99 Oxygen O2 Source Room air - Labs Labs: Microbiology 02/13/18 17:20 Wound Culture - Preliminary Abscess Procedures - Abscess I&D (location) R axillary abscess Preparation: Confirmed with ultrasound, Lidocaine 2 %, With epi Incision: Incised with scalpel, Needle aspiration, Purulent drainage, Loculations broken, Irrigated, Culture obtained. No: Packed (patient refused packing) Other: Pt tolerated well, Dressing applied, Antibiotic prescribed PD MEDICAL DECISION MAKING - ED course Complexity details: reviewed results, re-evaluated patient, considered differential, d/w patient ED course: Patient is a 47-year-old female who presents to the emergency department with a right axillary abscess. This was incised and drained. Tolerated well. Wound culture obtained. Will place on doxycycline given her other medications and allergies. Will have her follow-up with her PCP for repeat evaluation. We also discussed seeing a surgeon for possible hidradenitis suppurativa. Patient counseled regarding signs and symptoms for which I believe and urgent re- evaluation would be necessary. Patient with good understanding of and agreement to plan and is comfortable going home at this time This document was made in part using voice recognition software. While efforts are made to proofread this document, sound alike and grammatical errors may occur. Departure - Departure Disposition: 01 Home, Self Care Clinical Impression: Abscess of axilla, right Condition: Good Instructions: ED Abscess IandD Follow-Up: Radha Cuenca DO [Primary Care Provider] - Within 3 Days (for wound check) Prescriptions: Doxycycline Hyclate 100 mg PO BID #14 capsule Comments: Take all antibiotics until gone. Return if you worsen. You should have a wound check in 2-3 days with your doctor. Discharge Date/Time: 02/13/18 17:26
[2018-02-13] MEDS ORDERED: LIDOCAINE 2%-EPI 1:100000 20 ML MDV ONE (17:07)
== END 2018-02-13 17:26 | disposition home or self-care (01) ==
LOC: ED 16:09
DX: L02.411 Cutaneous abscess of right axilla (principal); I10 Essential (primary) hypertension; E11.9 Type 2 diabetes mellitus without complications; F17.200 Nicotine dependence, unspecified, uncomplicated; Z79.4 Long term (current) use of insulin; Z86.711 Personal history of pulmonary embolism
CPT/HCPCS: 10060; 87070; 87205; 99283

== ENCOUNTER 2018-02-15 14:36 | Outpatient (CLI) | payer MEDICAID | END 2018-02-15 14:37 | disposition critical access hospital (66) | LOC: EMS 14:36 | PROVIDERS: ATTEND Surgery | DX: R45.851 Suicidal ideations (principal) | CPT/HCPCS: A0425; A0429 ==

== ENCOUNTER 2018-02-15 14:57 | Emergency (ER) | payer MEDICAID ==
[2018-02-15 15:04] VITALS: BP 133/92
[2018-02-15 15:39] LABS: BASOPHILS # (AUTO) 0.2 10^3/uL (0.0-0.1); BASOPHILS % (AUTO) 1.4 %; EOSINOPHILS # (AUTO) 0.4 10^3/uL (0.0-0.7); EOSINOPHILS % (AUTO) 2.9 %; HGB - HEMOGLOBIN 13.6 g/dL (12.0-16.0); LYMPHOCYTES # (AUTO) 3.5 10^3/uL (1.5-3.5); LYMPHOCYTES % (AUTO) 27.2 %; MEAN CORPUSCULAR HEMOGLOBIN 26.2 pg (27.0-31.0); MEAN CORPUSCULAR HGB CONC 31.6 g/dL (32.0-36.0); MEAN CORPUSCULAR VOLUME 82.8 fL (81.0-99.0); MEAN PLATELET VOLUME 10.2 fL (7.9-10.8); MONOCYTES # (AUTO) 0.6 10^3/uL (0.0-1.0); MONOCYTES % (AUTO) 4.5 %; NEUTROPHILS # (AUTO) 8.2 10^3/uL (1.5-6.6); PLT - PLATELET COUNT 228 10^3/uL (130-450); RED CELL DISTRIBUTION WIDTH 14.1 % (12.0-15.0); WHITE BLOOD COUNT 12.7 x10^3/uL (4.8-10.8)
[2018-02-15 15:54] LABS: ALBUMIN/GLOBULIN RATIO 1.1 (1.0-2.2); ALKALINE PHOSPHATASE 48 IU/L (42-121); ALT ALANINE AMINOTRANSFERASE 21 IU/L (10-60); AST ASPARTATE AMINOTRANSFERASE 20 IU/L (10-42); BILIRUBIN,TOTAL 0.3 mg/dL (0.2-1.0); BUN - BLOOD UREA NITROGEN 9 mg/dL (6-20); CALCIUM 9.2 mg/dL (8.5-10.3); CARBON DIOXIDE - CO2 23 mmol/L (21-32); CHLORIDE 109 mmol/L (101-111); CREATININE 0.7 mg/dL (0.4-1.0); GFR - MDRD 89 (>89); GLUCOSE 177 mg/dL (70-100); LIPASE 35 U/L (22-51); SALICYLATE < 6.0 mg/dL; SODIUM 140 mmol/L (135-145); TOTAL PROTEIN 7.5 g/dL (6.7-8.2)
[2018-02-15 15:55] LABS: ACETAMINOPHEN < 10 ug/mL (10-30)
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
== END 2018-02-15 16:49 | disposition home or self-care (01) ==
LOC: EDUNIT# → ED 14:57
DX: F31.9 Bipolar disorder, unspecified (principal); I10 Essential (primary) hypertension; E11.9 Type 2 diabetes mellitus without complications; F17.200 Nicotine dependence, unspecified, uncomplicated; Z79.4 Long term (current) use of insulin; Z86.711 Personal history of pulmonary embolism
CPT/HCPCS: 36415; 80053; 80307; 80320; 80329; 83690; 85025; 99282; 99283

== ENCOUNTER 2018-02-19 12:01 | Emergency (ER) | payer MEDICAID ==
--- NOTE | 2018-02-19 12:54 | ED Physician Documentation ---
PD HPI FOCAL NEURO - Stated complaint Stated Complaint: WHOLE BODY TINGLING - Chief complaint Chief Complaint: General - History obtained from History obtained from: Patient - History of Present Illness Timing - onset: Yesterday (Starting abruptly yesterday she felt like it was raining on her arms even though it was not. Since then she has had persistent paresthesias that feel like everything is falling asleep and is starting to come back a week. No recent changes in her medications. Her blood sugars have been relatively controlled. There is some upper back pain with this but no neck pain or headache.) Review of Systems Constitutional: reports: Reviewed and negative Nose: denies: Rhinorrhea / runny nose, Congestion Cardiac: denies: Chest pain / pressure, Palpitations Respiratory: denies: Dyspnea, Cough GI: denies: Abdominal Pain PD PAST MEDICAL HISTORY - Past Medical History Cardiovascular: Hypertension, Pulmonary embolism Respiratory: Other Endocrine/Autoimmune: Type 2 diabetes GI: GERD : None HEENT: None Psych: Depression, Anxiety, Bipolar disorder, Panic attacks, Post traumatic stress disorder Musculoskeletal: Osteoarthritis, Fibromyalgia Derm: None - Past Surgical History Past Surgical History: Yes 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, Other - Present Medications Home Medications: Ambulatory Orders Medication Instructions Recorded Confirmed Lisinopril [Zestril] 10 mg PO QPM 07/20/13 09/03/17 [place] Carbonate 900 mg PO QPM 07/20/13 09/03/17 Omeprazole 10 mg PO BID 07/20/13 08/30/17 Prazosin [Minipress] 8 mg PO QPM 07/20/13 09/03/17 DULoxetine [Cymbalta] 60 mg ORAL QPM 12/05/15 09/03/17 Simvastatin [Zocor] 10 mg PO DAILY 09/08/16 09/03/17 risperiDONE [RisperDAL] 1 mg PO DAILY 09/08/16 09/03/17 Pregabalin [Lyrica] 150 mg PO TID 07/27/17 09/03/17 Propranolol HCl [Propranolol HCl 60 mg PO DAILY 07/27/17 09/03/17 ER] Nystatin/Triamcin 1 applic TP BID PRN #1 oint...g. 08/30/17 09/03/17 [Nystatin-Triamcinolone Ointm] Nortriptyline HCl 50 mg PO DAILY 09/03/17 09/03/17 Cyclobenzaprine [Flexeril] 10 mg PO TID PRN #20 tablet 12/05/17 Nitrofurantoin Monohyd/M-Cryst 1 tab PO BID 5 Days capsule 01/29/18 [Macrobid 100 mg Capsule] ARIPiprazole [Abilify] mg PO DAILY 02/13/18 Doxycycline Hyclate 100 mg PO BID #14 capsule 02/13/18 Insulin Glargine [Lantus Solostar] 22 unit 02/13/18 - Allergies Allergies/Adverse Reactions: Allergies Allergy/AdvReac Type Severity Reaction Status Date / Time Penicillins Allergy Severe Respiratory Verified 02/19/18 12:16 ketorolac tromethamine * Allergy Unknown Verified 02/19/18 12:16 [From Toradol] Sulfa (Sulfonamide Allergy Unknown Verified 02/19/18 12:16 Antibiotics) varenicline tartrate * AdvReac Severe Suicidal Verified 02/19/18 12:16 [From Chantix] ideations quetiapine fumarate * AdvReac Dizziness Verified 02/19/18 12:16 [From Seroquel] sertraline HCl * AdvReac Shakes Verified 02/19/18 12:16 [From Zoloft] sucralose AdvReac SEVERE Verified 02/19/18 12:16 [From Splenda (sucralose)] CHANGE IN MOOD - Social History Does the pt smoke?: Yes Smoking Status: Current every day smoker Does the pt drink ETOH?: No Does the pt have substance abuse?: No - Immunizations Immunizations are current?: Yes Immunizations: TDAP >10years/unknown - POLST Patient has POLST: No POLST Status: Full Code PD ED PE NORMAL - Vitals Vital signs reviewed: Yes - General General: Alert and oriented X 3, No acute distress, Other (She does not appear anxious or panicky, she is slightly tremulous in the upper extremities.) - HEENT HEENT: PERRL, EOMI - Neck Neck: Supple, no meningeal sign, No bony TTP - Cardiac Cardiac: RRR, No murmur - Respiratory Respiratory: No respiratory distress, Clear bilaterally - Abdomen Abdomen: Normal bowel sounds, Soft, Non tender - Derm Derm: Normal color, Warm and dry - Neuro Neuro: Alert and oriented X 3, 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 She has diminished sharp versus dull discrimination especially in the hands bilaterally but also affects the feet and to a lesser extent of the face.) Eye Opening: Spontaneous Motor: Obeys Commands Verbal: Oriented GCS Score: 15 Results - Vitals Vitals: Vital Signs - 24 hr 02/19/18 12:11 Temperature 36.6 C Heart Rate 89 Respiratory 18 Rate Blood Pressure 128/83 H O2 Saturation 94 Oxygen O2 Source Room air - Labs Labs: Laboratory Tests 02/19/18 02/19/18 02/19/18 12:15 12:57 12:57 WBC 13.3 H RBC 4.71 Hgb 12.7 Hct 38.7 MCV 82.1 MCH 26.9 L MCHC 32.8 RDW 13.9 Plt Count 219 MPV 9.8 Neut # 9.3 H Lymph # 3.1 [place] # 0.6 Eos # 0.3 Baso # 0.1 Absolute Nucleated RBC 0.01 Nucleated RBC % 0.1 VBG pH VBG pCO2 VBG pO2 VBG HCO3 VBG Total CO2 VBG O2 Saturation VBG Base Excess Sodium 136 Potassium 3.8 Chloride 105 Carbon Dioxide 25 Anion Gap 6.0 BUN 11 Creatinine 0.8 Estimated GFR (MDRD) 76 L Glucose 159 H Calcium 8.9 Total Bilirubin 0.4 AST 17 ALT 19 Alkaline Phosphatase 42 Total Protein 6.7 Albumin 3.8 Globulin 2.9 Albumin/Globulin Ratio 1.3 Lipase 37 Urine Color YELLOW Urine Clarity CLEAR Urine pH 6.0 Ur Specific [place] 1.010 Urine Protein NEGATIVE Urine Glucose (UA) NEGATIVE Urine Ketones NEGATIVE Urine Occult Blood NEGATIVE Urine Nitrite NEGATIVE Urine Bilirubin NEGATIVE Urine Urobilinogen 0.2 (NORMAL) Ur Leukocyte Esterase NEGATIVE Ur Microscopic Review NOT INDICATED Urine Culture Comments NOT INDICATED 02/19/18 12:57 WBC RBC Hgb Hct MCV MCH MCHC RDW Plt Count MPV Neut # Lymph # [place] # Eos # Baso # Absolute Nucleated RBC Nucleated RBC % VBG pH 7.333 VBG pCO2 51.2 H VBG pO2 22.0 L VBG HCO3 26.6 VBG Total CO2 28.1 VBG O2 Saturation 43.0 L VBG Base Excess 0.0 Sodium Potassium Chloride Carbon Dioxide Anion Gap BUN Creatinine Estimated GFR (MDRD) Glucose Calcium Total Bilirubin AST ALT Alkaline Phosphatase Total Protein Albumin Globulin Albumin/Globulin Ratio Lipase Urine Color Urine Clarity Urine pH Ur Specific [place] Urine Protein Urine Glucose (UA) Urine Ketones Urine Occult Blood Urine Nitrite Urine Bilirubin Urine Urobilinogen Ur Leukocyte Esterase Ur Microscopic Review Urine Culture Comments PD MEDICAL DECISION MAKING - ED course ED course: 48-year-old woman with acute paresthesias, the differential diagnosis is broad. Unfortunately we cannot do an MRI on her, she has unremovable steel tongue stud. No findings on diagnostics here and she does not seem disabled by this. Close follow-up precautions were given. Departure - Departure Disposition: 01 Home, Self Care Clinical Impression: Paresthesia, Essential hypertension Condition: Good Record reviewed to determine appropriate education?: Yes Instructions: ED Paraesthesias Follow-Up: Tootie Cobian MD [Physician No Access] - Comments: Please return if worsening or if any new symptoms develop, if symptoms are simply persistent I recommend following up with a neurologist such as the one listed on this form.
[2018-02-19 13:07] LABS: BASOPHILS # (AUTO) 0.1 10^3/uL (0.0-0.1); BASOPHILS % (AUTO) 0.6 %; EOSINOPHILS # (AUTO) 0.3 10^3/uL (0.0-0.7); EOSINOPHILS % (AUTO) 2.3 %; HGB - HEMOGLOBIN 12.7 g/dL (12.0-16.0); LYMPHOCYTES # (AUTO) 3.1 10^3/uL (1.5-3.5); MEAN CORPUSCULAR HEMOGLOBIN 26.9 pg (27.0-31.0); MEAN CORPUSCULAR HGB CONC 32.8 g/dL (32.0-36.0); MEAN CORPUSCULAR VOLUME 82.1 fL (81.0-99.0); MEAN PLATELET VOLUME 9.8 fL (7.9-10.8); MONOCYTES # (AUTO) 0.6 10^3/uL (0.0-1.0); MONOCYTES % (AUTO) 4.6 %; NEUTROPHILS # (AUTO) 9.3 10^3/uL (1.5-6.6); NEUTROPHILS % (AUTO) 69.5 %; PLT - PLATELET COUNT 219 10^3/uL (130-450); RED BLOOD COUNT 4.71 10^6/uL (4.20-5.40); RED CELL DISTRIBUTION WIDTH 13.9 % (12.0-15.0); WHITE BLOOD COUNT 13.3 x10^3/uL (4.8-10.8)
[2018-02-19 13:11] LABS: VBG PCO2 51.2 mmHg (41-51); VBG PH 7.333 (7.31-7.41); VBG TOTAL CO2 28.1 mmol/L (24-29)
[2018-02-19 13:15] LABS: BILIRUBIN,URINE NEGATIVE (NEGATIVE); GLUCOSE, URINE (UA) NEGATIVE (NEGATIVE); KETONES,URINE (UA) NEGATIVE (NEGATIVE); LEUKOCYTE ESTERASE, URINE NEGATIVE (NEGATIVE); NITRITE,URINE NEGATIVE (NEGATIVE); OCCULT BLOOD,URINE NEGATIVE (NEGATIVE); PROTEIN,URINE NEGATIVE (NEGATIVE); UROBILINOGEN,URINE 0.2 (NORMAL) E.U./dL (NORMAL)
[2018-02-19 13:16] LABS: CLARITY,URINE CLEAR (CLEAR)
[2018-02-19 13:24] LABS: ALBUMIN 3.8 g/dL (3.2-5.5); ALBUMIN/GLOBULIN RATIO 1.3 (1.0-2.2); BILIRUBIN,TOTAL 0.4 mg/dL (0.2-1.0); CALCIUM 8.9 mg/dL (8.5-10.3); CREATININE 0.8 mg/dL (0.4-1.0); TOTAL PROTEIN 6.7 g/dL (6.7-8.2)
--- NOTE | 2018-02-19 13:45 | CT Report ---
EXAM: CT HEAD EXAM DATE: 02/19/2018 01:26 PM. CLINICAL HISTORY: Paresthesias (cannot MRI d/t metal). COMPARISON: 05/30/2016. TECHNIQUE: Multiaxial CT images were obtained from the foramen magnum to the vertex. Reformats: Coron al. IV contrast: None. In accordance with CT protocol optimization, one or more of the following dose reduction techniques w ere utilized for this exam: automated exposure control, adjustment of mA and/or KV based on patient s ize, or use of iterative reconstructive technique. FINDINGS: Parenchyma: No intraparenchymal hemorrhage. No evidence of mass, midline shift, or CT findings of inf arction. Jensen-white differentiation is distinct. Extraaxial Spaces: Normal for age. No subdural or epidural collections identified. Ventricles: Normal in size and position. Sinuses and Orbits: Imaged paranasal sinuses, orbits, and mastoids show no significant abnormality. Bones: No evidence of fracture or calvarial defect. Other: None. IMPRESSION: No acute intracranial CT abnormality. [facility] Referring Provider Line: [phone] SITE ID: [id number]
[2018-02-19 14:19] VITALS: BP 136/89
== END 2018-02-19 14:27 | disposition home or self-care (01) ==
LOC: ED 12:01
DX: R20.2 Paresthesia of skin (principal); I10 Essential (primary) hypertension; E11.9 Type 2 diabetes mellitus without complications; Z79.4 Long term (current) use of insulin; Z86.711 Personal history of pulmonary embolism
CPT/HCPCS: 36415; 70450; 80053; 81001; 81003; 82803; 83690; 85025; 87086; 99283

== ENCOUNTER 2019-10-01 09:55 | Emergency (ER) | payer MEDICAID ==
[2019-10-01 10:10] VITALS: BP 112/81
[2019-10-01 10:49] LABS: BILIRUBIN,URINE NEGATIVE (NEGATIVE); GLUCOSE, URINE (UA) 100 mg/dL (NEGATIVE); KETONES,URINE (UA) NEGATIVE (NEGATIVE); PH,URINE 6.5 PH (5.0-7.5)
[2019-10-01 10:51] LABS: CLARITY,URINE CLOUDY (CLEAR)
[2019-10-01] MEDS ORDERED: NITROFURANTOIN MACRO 100 MG CAPSULE PO STA (10:57)
[2019-10-01 10:59] LABS: SQUAMOUS EPITHELIAL CELL,UR FEW Squamous (<= Few); WBC CLUMPS,URINE PRESENT
--- NOTE | 2019-10-01 10:59 | ED Physician Documentation ---
PD HPI FEMALE - Stated complaint Stated Complaint: FEMALE - Chief complaint Chief Complaint: UTI - History obtained from History obtained from: Patient - History of Present Illness Timing - onset: Today Timing - duration: Days (1) Timing - details: Gradual onset Pain level max: 3, 5 Pain level max: 1 Associated symptoms: Dysuria, Urinary frequency. No: Fever, Abdominal pain, Back pain, Pelvic pain, Vaginal pain, Vaginal bleeding Similar symptoms before: Diagnosis (UTI) Recently seen: Not recently seen Review of Systems Constitutional: denies: Fever, Chills GI: denies: Vomiting : reports: Dysuria, Frequency, Hesitancy Skin: denies: Rash PD PAST MEDICAL HISTORY - Past Medical History Cardiovascular: Hypertension, Pulmonary embolism Respiratory: Other Endocrine/Autoimmune: Type 2 diabetes GI: GERD : None HEENT: None Psych: Depression, Anxiety, Bipolar disorder, Panic attacks, Post traumatic stress disorder Musculoskeletal: Osteoarthritis, Fibromyalgia Derm: None - Past Surgical History Past Surgical History: Yes 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, Other - Present Medications Home Medications: Ambulatory Orders Medication Instructions Recorded Confirmed Lisinopril [Zestril] 10 mg PO QPM 07/20/13 09/03/17 [place] Carbonate 900 mg PO QPM 07/20/13 09/03/17 Omeprazole 10 mg PO BID 07/20/13 08/30/17 Prazosin [Minipress] 8 mg PO QPM 07/20/13 09/03/17 DULoxetine [Cymbalta] 60 mg ORAL QPM 12/05/15 09/03/17 Simvastatin [Zocor] 10 mg PO DAILY 09/08/16 09/03/17 risperiDONE [RisperDAL] 1 mg PO DAILY 09/08/16 09/03/17 Pregabalin [Lyrica] 150 mg PO TID 07/27/17 09/03/17 Propranolol HCl [Propranolol HCl 60 mg PO DAILY 07/27/17 09/03/17 ER] Nystatin/Triamcin 1 applic TP BID PRN #1 oint...g. 08/30/17 09/03/17 [Nystatin-Triamcinolone Ointm] Nortriptyline HCl 50 mg PO DAILY 09/03/17 09/03/17 Cyclobenzaprine [Flexeril] 10 mg PO TID PRN #20 tablet 12/05/17 Nitrofurantoin Monohyd/M-Cryst 1 tab PO BID 5 Days capsule 01/29/18 [Macrobid 100 mg Capsule] ARIPiprazole [Abilify] mg PO DAILY 02/13/18 Doxycycline Hyclate 100 mg PO BID #14 capsule 02/13/18 Insulin Glargine [Lantus Solostar] 22 unit 02/13/18 Nitrofurantoin Monohyd/M-Cryst 100 mg PO BID #10 capsule 10/01/19 [Macrobid 100 mg Capsule] Phenazopyridine HCl [Pyridium] 200 mg PO TID PRN #6 tablet 10/01/19 - Allergies Allergies/Adverse Reactions: Allergies Allergy/AdvReac Type Severity Reaction Status Date / Time Penicillins Allergy Severe Respiratory Verified 10/01/19 10:08 ketorolac tromethamine * Allergy Unknown Verified 02/19/18 12:16 [From Toradol] Sulfa (Sulfonamide Allergy Unknown Verified 10/01/19 10:08 Antibiotics) varenicline tartrate * AdvReac Severe Suicidal Verified 10/01/19 10:08 [From Chantix] ideations quetiapine fumarate * AdvReac Dizziness Verified 10/01/19 10:08 [From Seroquel] sertraline HCl * AdvReac Shakes Verified 10/01/19 10:08 [From Zoloft] sucralose AdvReac SEVERE Verified 10/01/19 10:08 [From Splenda (sucralose)] CHANGE IN MOOD - Social History Does the pt smoke?: Yes Smoking Status: Current every day smoker Does the pt drink ETOH?: No Does the pt have substance abuse?: No - Immunizations Immunizations are current?: Yes Immunizations: TDAP >10years/unknown - POLST Patient has POLST: No POLST Status: Full Code PD ED PE NORMAL - Vitals Vital signs reviewed: Yes - General General: Alert and oriented X 3, No acute distress, Well developed/nourished - HEENT HEENT: Moist mucous membranes - Neck Neck: Supple, no meningeal sign - Abdomen Abdomen: Soft, Non tender, Non distended - Back Back: No CVA TTP - Derm Derm: Warm and dry - Neuro Neuro: Alert and oriented X 3 - Psych Psych: Normal mood, Normal affect Results - Vitals Vitals: Vital Signs - 24 hr 10/01/19 10:08 Temperature 36.8 C Heart Rate 75 Respiratory 15 Rate Blood Pressure 112/81 H O2 Saturation 100 Oxygen O2 Source Room air - Labs Labs: Laboratory Tests 10/01/19 10:16 Urine Color ORANGE Urine Clarity CLOUDY Urine pH 6.5 Ur Specific [place] 1.010 Urine Protein Urine Glucose (UA) 100 H Urine Ketones NEGATIVE Urine Occult Blood Urine Nitrite Urine Bilirubin NEGATIVE Urine Urobilinogen Ur Leukocyte Esterase Urine RBC 6-10 H Urine WBC >25 H Urine WBC Clumps PRESENT Ur Squamous Epith Cells FEW Squamous Urine Bacteria Few Ur Microscopic Review INDICATED Urine Culture Comments INDICATED PD MEDICAL DECISION MAKING - ED course Complexity details: reviewed results, re-evaluated patient, considered differential, d/w patient ED course: Patient with a UTI. Will place on antibiotics. No evidence of pyelonephritis or sepsis. Patient counseled regarding signs and symptoms for which I believe and urgent re-evaluation would be necessary. Patient with good understanding of and agreement to plan and is comfortable going home at this time This document was made in part using voice recognition software. While efforts are made to proofread this document, sound alike and grammatical errors may occur. Departure - Departure Disposition: 01 Home, Self Care Clinical Impression: Urinary tract infection Qualifiers: Urinary tract infection type: acute cystitis Hematuria presence: without hematuria Qualified Code(s): N30.00 - Acute cystitis without hematuria Condition: Good Instructions: ED UTI Cystitis Female Follow-Up: Radha Cuenca DO [Primary Care Provider] - Within 1 week Prescriptions: Nitrofurantoin Monohyd/M-Cryst [Macrobid 100 mg Capsule] 100 mg PO BID #10 capsule Phenazopyridine HCl [Pyridium] 200 mg PO TID PRN #6 tablet PRN Reason: dysuria Comments: Take all antibiotics until gone. Return if you worsen. Follow-up with your doctor for further care. Your prescription was sent to [facility] in [place] Discharge Date/Time: 10/01/19 11:07
[2019-10-01 11:00] LABS: BACTERIA,URINE Few /HPF (None Seen)
== END 2019-10-01 11:07 | disposition home or self-care (01) ==
LOC: ED 09:55
DX: N30.00 Acute cystitis without hematuria (principal); I10 Essential (primary) hypertension; E11.9 Type 2 diabetes mellitus without complications; F17.200 Nicotine dependence, unspecified, uncomplicated; Z79.4 Long term (current) use of insulin
CPT/HCPCS: 81001; 87086; 87181; 99283; 99284; A9270; 81003

== ENCOUNTER 2019-11-18 11:55 | Emergency (ER) | payer MEDICAID ==
[2019-11-18 12:15] VITALS: BP 115/81
[2019-11-18 12:30] LABS: GLUCOSE, URINE (UA) 100 mg/dL (NEGATIVE); KETONES,URINE (UA) NEGATIVE (NEGATIVE); PH,URINE 6.5 PH (5.0-7.5)
[2019-11-18 12:36] LABS: BILIRUBIN,URINE NEGATIVE (NEGATIVE); CLARITY,URINE INTERFERENCES (CLEAR); ICTOTEST,URINE NEGATIVE
[2019-11-18 12:54] LABS: BACTERIA,URINE Many /HPF (None Seen); RBC,URINE 0-5 /HPF (0-5); SQUAMOUS EPITHELIAL CELL,UR FEW Squamous (<= Few); WBC CLUMPS,URINE PRESENT
[2019-11-18] MEDS ORDERED: NITROFURANTOIN MACRO 100 MG CAPSULE PO STA (13:11)
--- NOTE | 2019-11-18 13:12 | ED Physician Documentation ---
PD HPI FEMALE - Stated complaint Stated Complaint: FEMALE - Chief complaint Chief Complaint: UTI - History obtained from History obtained from: Patient - History of Present Illness Timing - onset: Other (49-year-old woman with frequent UTIs presents "peeing razor blades since last night". No back pain, she does have frequency and dysuria. No nausea or fever. Last urine culture reviewed, ESBL E. 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, Other - Present Medications Home Medications: Ambulatory Orders Medication Instructions Recorded Confirmed [place] Carbonate 900 mg PO QPM 07/20/13 09/03/17 Omeprazole 10 mg PO BID 07/20/13 08/30/17 Prazosin [Minipress] 8 mg PO QPM 07/20/13 09/03/17 lisinopriL [Zestril] 10 mg PO QPM 07/20/13 09/03/17 DULoxetine [Cymbalta] 60 mg ORAL QPM 12/05/15 09/03/17 Simvastatin [Zocor] 10 mg PO DAILY 09/08/16 09/03/17 risperiDONE [RisperDAL] 1 mg PO DAILY 09/08/16 09/03/17 Pregabalin [Lyrica] 150 mg PO TID 07/27/17 09/03/17 Propranolol HCl [Propranolol HCl 60 mg PO DAILY 07/27/17 09/03/17 ER] Nystatin/Triamcin 1 applic TP BID PRN #1 oint...g. 08/30/17 09/03/17 [Nystatin-Triamcinolone Ointm] Nortriptyline HCl 50 mg PO DAILY 09/03/17 09/03/17 Cyclobenzaprine [Flexeril] 10 mg PO TID PRN #20 tablet 12/05/17 Nitrofurantoin Monohyd/M-Cryst 1 tab PO BID 5 Days capsule 01/29/18 [Macrobid 100 mg Capsule] ARIPiprazole [Abilify] mg PO DAILY 02/13/18 Doxycycline Hyclate 100 mg PO BID #14 capsule 02/13/18 Insulin Glargine [Lantus Solostar] 22 unit 02/13/18 Nitrofurantoin Monohyd/M-Cryst 100 mg PO BID #10 capsule 10/01/19 [Macrobid 100 mg Capsule] Phenazopyridine HCl [Pyridium] 200 mg PO TID PRN #6 tablet 10/01/19 Nitrofurantoin Monohyd/M-Cryst 100 mg PO BID #20 capsule 11/18/19 [Macrobid 100 mg Capsule] - Allergies Allergies/Adverse Reactions: Allergies Allergy/AdvReac Type Severity Reaction Status Date / Time Penicillins Allergy Severe Respiratory Verified 11/18/19 12:15 ketorolac tromethamine * Allergy Unknown Verified 11/18/19 12:15 [From Toradol] Sulfa (Sulfonamide Allergy Unknown Verified 11/18/19 12:15 Antibiotics) varenicline tartrate * AdvReac Severe Suicidal Verified 11/18/19 12:15 [From Chantix] ideations quetiapine fumarate * AdvReac Dizziness Verified 11/18/19 12:15 [From Seroquel] sertraline HCl * AdvReac Shakes Verified 11/18/19 12:15 [From Zoloft] sucralose AdvReac SEVERE Verified 11/18/19 12:15 [From Splenda (sucralose)] CHANGE IN MOOD - Social History Does the pt smoke?: Yes Smoking Status: Current every day smoker Does the pt drink ETOH?: No Does the pt have substance abuse?: No - Immunizations Immunizations are current?: Yes Immunizations: TDAP >10years/unknown - POLST Patient has POLST: No POLST Status: Full Code PD ED PE NORMAL - Vitals Vital signs reviewed: Yes - General General: Alert and oriented X 3, No acute distress - Abdomen Abdomen: Soft, Non tender - Back Back: No CVA TTP - Neuro Neuro: Alert and oriented X 3, Normal speech Results - Vitals Vitals: Vital Signs - 24 hr 11/18/19 12:13 Temperature 36.3 C L Heart Rate 70 Respiratory 18 Rate Blood Pressure 115/81 H O2 Saturation 99 Oxygen O2 Source Room air - Labs Labs: Laboratory Tests 11/18/19 12:20 Urine Color ORANGE Urine Clarity INTERFERENCES Urine pH 6.5 Ur Specific [place] 1.015 Urine Protein Urine Glucose (UA) 100 H Urine Ketones NEGATIVE Urine Occult Blood Urine Nitrite Urine Bilirubin NEGATIVE Urine Urobilinogen Ur Leukocyte Esterase Urine RBC 0-5 Urine WBC >25 H Urine WBC Clumps PRESENT Ur Squamous Epith Cells FEW Squamous Urine Bacteria Many H Ur Microscopic Review INDICATED Urine Culture Comments INDICATED Departure - Departure Disposition: Home, Self Care Clinical Impression: Cystitis Condition: Good Record reviewed to determine appropriate education?: Yes Instructions: ED UTI Cystitis Female Prescriptions: Nitrofurantoin Monohyd/M-Cryst [Macrobid 100 mg Capsule] 100 mg PO BID #20 capsule Comments: As discussed you do have a bladder infection, we are using a longer course of antibiotics given the frequent nature of these. Follow-up with your doctor and discussed the last urine culture which grew ESBL E. coli. She may want to refer you to a urologist for further work-up. Return for new or worsening symptoms. We will culture your urine, the results should be done in 48-72 hours. If an antibiotic change is necessary we will call you. Return if worse in the mean time, especially if you develop increasing flank pain, fevers, or cannot keep down the medication.
== END 2019-11-18 13:26 | disposition home or self-care (01) ==
LOC: ED 11:55
DX: N30.90 Cystitis, unspecified without hematuria (principal); I10 Essential (primary) hypertension; E11.9 Type 2 diabetes mellitus without complications; Z79.4 Long term (current) use of insulin; F17.200 Nicotine dependence, unspecified, uncomplicated
CPT/HCPCS: 81001; 87086; 87181; 99283; A9270; 81003

== ENCOUNTER 2020-02-02 14:30 | Emergency (ER) | payer MEDICAID ==
[2020-02-02] MEDS ORDERED: HYDROmorphone 1 MG/ML CARPUJECT IVP STA (14:53)
[2020-02-02] MEDS ORDERED: SODIUM CHLORIDE 0.9% 1,000 ML IV ONE (14:53)
[2020-02-02] MEDS ORDERED: PROMETHAZINE INJ 25 MG in SODIUM CHLORIDE 0.9% 50 ML IV STA (14:53)
--- NOTE | 2020-02-02 14:58 | ED Physician Documentation ---
History of Present Illness - Stated complaint Stated Complaint: GUILLEN - Chief complaint Chief Complaint: General - History obtained from History obtained from: Patient (Gradual onset bifrontal headache for a week consistent with prior episodes of migraine. No neck stiffness or fevers. She is tried Tylenol, ibuprofen, Excedrin, caffeine and drinking fluids at home without relief. Last migraine was about a year ago.) Review of Systems Constitutional: denies: Fever, Chills Cardiac: denies: Chest pain / pressure, Palpitations Respiratory: denies: Dyspnea, Cough GI: reports: Nausea. 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, Other - Present Medications Home Medications: Ambulatory Orders Medication Instructions Recorded Confirmed [place] Carbonate 900 mg PO QPM 07/20/13 09/03/17 Omeprazole 10 mg PO BID 07/20/13 08/30/17 Prazosin [Minipress] 8 mg PO QPM 07/20/13 09/03/17 lisinopriL [Zestril] 10 mg PO QPM 07/20/13 09/03/17 DULoxetine [Cymbalta] 60 mg ORAL QPM 12/05/15 09/03/17 Simvastatin [Zocor] 10 mg PO DAILY 09/08/16 09/03/17 risperiDONE [RisperDAL] 1 mg PO DAILY 09/08/16 09/03/17 Pregabalin [Lyrica] 150 mg PO TID 07/27/17 09/03/17 Propranolol HCl [Propranolol HCl 60 mg PO DAILY 07/27/17 09/03/17 ER] Nystatin/Triamcin 1 applic TP BID PRN #1 oint...g. 08/30/17 09/03/17 [Nystatin-Triamcinolone Ointm] Nortriptyline HCl 50 mg PO DAILY 09/03/17 09/03/17 Cyclobenzaprine [Flexeril] 10 mg PO TID PRN #20 tablet 12/05/17 Nitrofurantoin Monohyd/M-Cryst 1 tab PO BID 5 Days capsule 01/29/18 [Macrobid 100 mg Capsule] ARIPiprazole [Abilify] mg PO DAILY 02/13/18 Doxycycline Hyclate 100 mg PO BID #14 capsule 02/13/18 Insulin Glargine [Lantus Solostar] 22 unit 02/13/18 Nitrofurantoin Monohyd/M-Cryst 100 mg PO BID #10 capsule 10/01/19 [Macrobid 100 mg Capsule] Phenazopyridine HCl [Pyridium] 200 mg PO TID PRN #6 tablet 10/01/19 Nitrofurantoin Monohyd/M-Cryst 100 mg PO BID #20 capsule 11/18/19 [Macrobid 100 mg Capsule] SUMAtriptan [Imitrex] 25 mg PO BID PRN #20 tablet 02/02/20 - Allergies Allergies/Adverse Reactions: Allergies Allergy/AdvReac Type Severity Reaction Status Date / Time Penicillins Allergy Severe Respiratory Verified 02/02/20 14:37 ketorolac tromethamine * Allergy Unknown Verified 02/02/20 14:37 [From Toradol] Sulfa (Sulfonamide Allergy Unknown Verified 02/02/20 14:37 Antibiotics) varenicline tartrate * AdvReac Severe Suicidal Verified 02/02/20 14:37 [From Chantix] ideations quetiapine fumarate * AdvReac Dizziness Verified 02/02/20 14:37 [From Seroquel] sertraline HCl * AdvReac Shakes Verified 02/02/20 14:37 [From Zoloft] sucralose AdvReac SEVERE Verified 02/02/20 14:37 [From Splenda (sucralose)] CHANGE IN MOOD - Social History Does the pt smoke?: Yes Smoking Status: Current every day smoker Does the pt drink ETOH?: No Does the pt have substance abuse?: No - Immunizations Immunizations are current?: Yes Immunizations: TDAP >10years/unknown - POLST Patient has POLST: No POLST Status: Full Code PD ED PE NORMAL - Vitals Vital signs reviewed: Yes - General General: Alert and oriented X 3, Other (Appears uncomfortable, photophobic) - HEENT HEENT: PERRL, EOMI - Neck Neck: Supple, no meningeal sign, No bony TTP - Neuro Neuro: Alert and oriented X 3, ribbon lap machine tender 2-12 intact, No motor deficit, No sensory deficit, Normal speech Eye Opening: Spontaneous Motor: Obeys Commands Verbal: Oriented GCS Score: 15 - Psych Psych: Normal mood, Normal affect Results - Vitals Vitals: Vital Signs - 24 hr 02/02/20 02/02/20 02/02/20 14:37 14:41 15:47 Temperature 37 C Heart Rate 76 75 71 Respiratory 18 16 14 Rate Blood Pressure 137/90 H 142/79 H 113/88 H O2 Saturation 96 96 96 02/02/20 16:50 Temperature 36.5 C Heart Rate 65 Respiratory 18 Rate Blood Pressure 151/86 H O2 Saturation 98 Oxygen O2 Source Room air PD MEDICAL DECISION MAKING - ED course ED course: 49-year-old woman with an exacerbation of chronic migraine syndrome. No evidence of more severe etiology such as subarachnoid hemorrhage, meningitis, tumor. Said it in the past Dilaudid and Phenergan worked well for her and this gave her partial relief which was then complete after subcutaneous Imitrex. Departure - Departure Disposition: 01 Home, Self Care Clinical Impression: Migraine Qualifiers: Migraine type: with aura Status migrainosus presence: with status migrainosus Intractability: not intractable Qualified Code(s): G43.101 - Migraine with aura, not intractable, with status migrainosus Condition: Good Record reviewed to determine appropriate education?: Yes Instructions: ED Headache Migraine Prescriptions: SUMAtriptan [Imitrex] 25 mg PO BID PRN #20 tablet PRN Reason: Headache Comments: Call your doctor to arrange a follow-up appointment, make the next available appointment. In the interim, return anytime if worse or if new symptoms develop. Discharge Date/Time: 02/02/20 16:58
[2020-02-02] MEDS ORDERED: SUMAtriptan 6 MG/0.5 ML VIAL SUBQ STA (15:45)
[2020-02-02 16:56] VITALS: BP 151/86
== END 2020-02-02 16:58 | disposition home or self-care (01) ==
LOC: ED 14:30
DX: G43.101 Migraine with aura, not intractable, with status migrainosus (principal); I10 Essential (primary) hypertension; E11.9 Type 2 diabetes mellitus without complications; F31.9 Bipolar disorder, unspecified; F43.10 Post-traumatic stress disorder, unspecified; Z79.4 Long term (current) use of insulin; K21.9 Gastro-esophageal reflux disease without esophagitis; F17.200 Nicotine dependence, unspecified, uncomplicated
CPT/HCPCS: 96361; 96365; 96372; 96375; 99284; J1170; J7040

== ENCOUNTER 2020-02-07 16:24 | Emergency (ER) | payer MEDICAID ==
[2020-02-07] MEDS ORDERED: SUMAtriptan 6 MG/0.5 ML VIAL SUBQ STA (16:47)
[2020-02-07] MEDS ORDERED: DEXAMETHASONE 10 MG/ML VIAL IVP STA (16:47)
[2020-02-07] MEDS ORDERED: PROMETHAZINE INJ 25 MG in SODIUM CHLORIDE 0.9% 50 ML IV STA (16:47)
[2020-02-07] MEDS ORDERED: SODIUM CHLORIDE 0.9% 1,000 ML IV ONE (16:47)
[2020-02-07] MEDS ORDERED: HYDROmorphone 1 MG/ML CARPUJECT IVP STA (16:47)
--- NOTE | 2020-02-07 16:49 | ED Physician Documentation ---
PD HPI HEADACHE - Stated complaint Stated Complaint: GUILLEN, NAUSEA - Chief complaint Chief Complaint: Neuro - History obtained from History obtained from: Patient (49-year-old woman with relatively frequent migraines, she was seen a few days ago by me for same, improved after medications but relapsed after about a day. It is her typical photophobic throbbing headache without neck stiffness or fever. 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 : None HEENT: None Psych: Depression, Anxiety, Bipolar disorder, Panic attacks, Post traumatic stress disorder Musculoskeletal: Osteoarthritis, Fibromyalgia Derm: None - Past Surgical History Past Surgical History: Yes 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 08/30/17 02/07/20 [Nystatin-Triamcinolone Ointm] SUMAtriptan [Imitrex] 25 mg PO BID PRN #20 tablet 02/02/20 02/07/20 Exenatide Microspheres [Bydureon 2 mg SQ ONCE 02/07/20 02/07/20 Pen] - Allergies Allergies/Adverse Reactions: Allergies Allergy/AdvReac Type Severity Reaction Status Date / Time Penicillins Allergy Severe Respiratory Verified 02/07/20 16:28 ketorolac tromethamine * Allergy Unknown Verified 02/07/20 16:28 [From Toradol] Sulfa (Sulfonamide Allergy Unknown Verified 02/07/20 16:28 Antibiotics) varenicline tartrate * AdvReac Severe Suicidal Verified 02/07/20 16:28 [From Chantix] ideations quetiapine fumarate * AdvReac Dizziness Verified 02/07/20 16:28 [From Seroquel] sertraline HCl * AdvReac Shakes Verified 02/07/20 16:28 [From Zoloft] sucralose AdvReac SEVERE Verified 02/07/20 16:28 [From Splenda (sucralose)] CHANGE IN MOOD - Social History Does the pt smoke?: Yes Smoking Status: Current every day smoker Does the pt drink ETOH?: No Does the pt have substance abuse?: No - Immunizations Immunizations are current?: Yes Immunizations: TDAP >10years/unknown - POLST Patient has POLST: No POLST Status: Full Code PD ED PE NORMAL - Vitals Vital signs reviewed: Yes - General General: Alert and oriented X 3, No acute distress - HEENT HEENT: PERRL, EOMI - Neck Neck: Supple, no meningeal sign - Neuro Neuro: Alert and oriented X 3, grapple operator 2-12 intact, No motor deficit, No sensory deficit, Normal speech Results - Vitals Vitals: Vital Signs - 24 hr 02/07/20 02/07/20 16:29 18:00 Temperature 36.7 C 36.3 C L Heart Rate 70 66 Respiratory 16 16 Rate Blood Pressure 142/93 H 152/95 H O2 Saturation 97 99 Oxygen O2 Source Room air - Labs Labs: Laboratory Tests 02/07/20 02/07/20 17:20 17:20 Sodium 136 Potassium 4.1 Chloride 105 Carbon Dioxide 24 Anion Gap 7.0 BUN 9 Creatinine 0.7 Estimated GFR (MDRD) 89 Glucose 95 Calcium 9.2 Last Dose Date 02/06/20 Last Dose Time 2100 [place] 0.47 PD MEDICAL DECISION MAKING - ED course ED course: After the administration of medications she improved significantly and requested discharge. The headache is gradual in onset and similar to prior headaches. As such I doubt subarachnoid hemorrhage. There are no infectious symptoms such as fever or stiff neck to make me suspect meningitis. No carbon monoxide exposure by history. Departure - Departure Disposition: 01 Home, Self Care Clinical Impression: Migraine Qualifiers: Migraine type: without aura Status migrainosus presence: with status migrainosus Intractability: intractable Qualified Code(s): G43.011 - Migraine without aura, intractable, with status migrainosus Condition: Good Instructions: ED Headache Migraine Comments: Call your doctor to arrange a follow-up appointment, make the next available appointment. In the interim, return anytime if worse or if new symptoms develop. Do not drive today
[2020-02-07 17:37] LABS: CALCIUM 9.2 mg/dL (8.5-10.3); CREATININE 0.7 mg/dL (0.4-1.0)
[2020-02-07 17:47] LABS: LITHIUM 0.47 mmol/L
[2020-02-07 18:00] VITALS: BP 152/95
== END 2020-02-07 18:11 | disposition home or self-care (01) ==
LOC: ED 16:24
DX: G43.011 Migraine without aura, intractable, with status migrainosus (principal); I10 Essential (primary) hypertension; E11.9 Type 2 diabetes mellitus without complications; F17.200 Nicotine dependence, unspecified, uncomplicated
CPT/HCPCS: 36415; 80048; 80178; 96365; 96372; 96375; 99284; J1170; J7040

== ENCOUNTER 2020-02-12 17:38 | Emergency (ER) | payer MEDICARE, MEDICAID ==
[2020-02-12] MEDS ORDERED: METOCLOPRAMIDE 10 MG/2 ML VIAL IVP STA (18:01)
[2020-02-12] MEDS ORDERED: diphenhydrAMINE INJ 50 MG/ML VIAL IVP STA (18:01)
[2020-02-12] MEDS ORDERED: DEXAMETHASONE 10 MG/ML VIAL IVP STA (18:01)
--- NOTE | 2020-02-12 18:02 | ED Physician Documentation ---
PD HPI HEADACHE - Stated complaint Stated Complaint: HEADACHE - Chief complaint Chief Complaint: Neuro - History obtained from History obtained from: Patient - History of Present Illness Timing - onset: Other (49-year-old woman with history of migraines. However infrequent ED use for same. Over the last 10 days or so she has had a recurrent headache. She is been seen here now this is the third time. On the previous 2 visits she got Dilaudid and Phenergan as well as Imitrex, because that is what she said had worked for her in the past. The meds do work but subsequent to that the next day the headache rebounds. She describes the headache as starting at the right frontal area and then moving to the left frontal area. It is associated with light sensitivity, sound sensitivity, nausea and vomiting. She denies neck stiffness or fevers. 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 : None HEENT: None Psych: Depression, Anxiety, Bipolar disorder, Panic attacks, Post traumatic stress disorder Musculoskeletal: Osteoarthritis, Fibromyalgia Derm: None - Past Surgical History Past Surgical History: Yes 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 08/30/17 02/07/20 [Nystatin-Triamcinolone Ointm] SUMAtriptan [Imitrex] 25 mg PO BID PRN #20 tablet 02/02/20 02/07/20 Exenatide Microspheres [Bydureon 2 mg SQ ONCE 02/07/20 02/07/20 Pen] SUMAtriptan [Imitrex] 25 mg PO BID PRN #9 tablet 02/12/20 - Allergies Allergies/Adverse Reactions: Allergies Allergy/AdvReac Type Severity Reaction Status Date / Time Penicillins Allergy Severe Respiratory Verified 02/07/20 16:28 ketorolac tromethamine * Allergy Unknown Verified 02/07/20 16:28 [From Toradol] Sulfa (Sulfonamide Allergy Unknown Verified 02/07/20 16:28 Antibiotics) varenicline tartrate * AdvReac Severe Suicidal Verified 02/07/20 16:28 [From Chantix] ideations quetiapine fumarate * AdvReac Dizziness Verified 02/07/20 16:28 [From Seroquel] sertraline HCl * AdvReac Shakes Verified 02/07/20 16:28 [From Zoloft] sucralose AdvReac SEVERE Verified 02/07/20 16:28 [From Splenda (sucralose)] CHANGE IN MOOD - Social History Does the pt smoke?: Yes Smoking Status: Current every day smoker Does the pt drink ETOH?: No Does the pt have substance abuse?: No - Immunizations Immunizations are current?: Yes Immunizations: TDAP >10years/unknown - POLST Patient has POLST: No POLST Status: Full Code PD ED PE NORMAL - Vitals Vital signs reviewed: Yes - General General: Alert and oriented X 3, No acute distress - HEENT HEENT: PERRL, EOMI - Neck Neck: Supple, no meningeal sign, No bony TTP - Derm Derm: Normal color, Warm and dry - Extremities Extremities: No edema, No calf tenderness / cord - Neuro Neuro: Alert and oriented X 3, Normal speech - Psych Psych: Normal mood, Normal affect Results - Vitals Vitals: Vital Signs - 24 hr 02/12/20 02/12/20 02/12/20 17:50 18:02 18:42 Temperature 36.5 C 37.1 C Heart Rate 69 71 70 Respiratory 18 18 16 Rate Blood Pressure 133/97 H 129/90 H 130/93 H O2 Saturation 99 99 16 L Oxygen O2 Source Room air PD MEDICAL DECISION MAKING - ED course ED course: The headache is typical for her migraines except for the intractability. Really nothing in the history or physical to suggest meningitis or subarachnoid hemorrhage but the frequent nature suggest the need for cranial imaging today. Also we will change her meds, I wonder if she is having rebound medic patient from narcotic use and today she is administered Reglan and Benadryl IV. Departure - Departure Disposition: 01 Home, Self Care Clinical Impression: Migraine Qualifiers: Migraine type: with aura Status migrainosus presence: with status migrainosus Intractability: not intractable Qualified Code(s): G43.101 - Migraine with aura, not intractable, with status migrainosus Condition: Good Record reviewed to determine appropriate education?: Yes Instructions: ED Headache Migraine Prescriptions: SUMAtriptan [Imitrex] 25 mg PO BID PRN #9 tablet PRN Reason: Headache Comments: Call your doctor to arrange a follow-up appointment, make the next available appointment. In the interim, return anytime if worse or if new symptoms develop.
--- NOTE | 2020-02-12 18:58 | CT Report ---
Reason: intractable headache Procedure Date: 02/12/2020 Accession Number: [id number] / [id number] Procedure: CT - HEAD WO CPT Code: Final Report FULL RESULT: EXAM: CT HEAD EXAM DATE: 02/12/2020 06:25 PM. CLINICAL HISTORY: Intractable headache. COMPARISON: HEAD W/O 02/19/2018 1:21 PM. TECHNIQUE: Multiaxial CT images were obtained from the foramen magnum to the vertex. Reformats: Sagittal and coronal. IV contrast: None. In accordance with CT protocol optimization, one or more of the following dose reduction techniques were utilized for this exam: automated exposure control, adjustment of mA and/or KV based on patient size, or use of iterative reconstructive technique. FINDINGS: Parenchyma: No intraparenchymal hemorrhage. No evidence of mass, midline shift, or CT findings of infarction. Jensen-white differentiation is distinct. Extraaxial Spaces: Normal for age. No subdural or epidural collections identified. Ventricles: Normal in size and position. Sinuses and Orbits: Imaged paranasal sinuses, orbits, and mastoids show no significant abnormality. Bones: No evidence of fracture or calvarial defect. Other: None. IMPRESSION: No acute intracranial abnormality. [facility]
[2020-02-12] MEDS ORDERED: SUMAtriptan 6 MG/0.5 ML VIAL SUBQ STA (19:01)
[2020-02-12 19:56] VITALS: BP 151/99
== END 2020-02-12 19:58 | disposition home or self-care (01) ==
LOC: ED 17:38
DX: G43.101 Migraine with aura, not intractable, with status migrainosus (principal); I10 Essential (primary) hypertension; E11.9 Type 2 diabetes mellitus without complications; F31.9 Bipolar disorder, unspecified; F17.200 Nicotine dependence, unspecified, uncomplicated
CPT/HCPCS: 70450; 96372; 96374; 96375; 99284; J1200; J2765

== ENCOUNTER 2020-06-14 17:28 | Emergency (ER) | payer MEDICARE, MEDICAID ==
[2020-06-14 17:37] VITALS: BP 150/109
--- NOTE | 2020-06-14 19:33 | ED Physician Documentation ---
History of Present Illness - Stated complaint Stated Complaint: RT ARM PX - Chief complaint Chief Complaint: Ext Problem - History obtained from History obtained from: Patient - Additonal information Additional information: the patient is a 50 y/o f who p/w a cc of right arm redness and swelling after she received a tattoo 3 days ago. denies any hx of mrsa. denies any fevers. denies any other complaints. Review of Systems Constitutional: reports: Reviewed and negative Eyes: reports: Reviewed and negative Ears: reports: Reviewed and negative Nose: reports: Reviewed and negative Throat: reports: Reviewed and negative Cardiac: reports: Reviewed and negative Respiratory: reports: Reviewed and negative GI: reports: Reviewed and negative : reports: Reviewed and negative Skin: reports: Other (redness and swelling right forearm) Musculoskeletal: reports: Reviewed and negative Neurologic: reports: Reviewed and negative Psychiatric: reports: Reviewed and negative Endocrine: reports: Reviewed and negative Immunocompromised: reports: Reviewed and negative PD PAST MEDICAL HISTORY - Past Medical History Cardiovascular: Hypertension, High cholesterol, Pulmonary embolism Respiratory: Other Neuro: Migraines Endocrine/Autoimmune: Type 2 diabetes GI: GERD 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 : None HEENT: None Psych: Depression, Anxiety, Bipolar disorder, Panic attacks, Post traumatic stress disorder Musculoskeletal: Osteoarthritis, Fibromyalgia Derm: None - Past Surgical History Past Surgical History: Yes General: Cholecystectomy /PICKER OPERATOR: Tubal ligation, Other - Present Medications Home Medications: Ambulatory Orders Medication Instructions Recorded Confirmed [place] Carbonate 1,200 mg PO QPM 07/20/13 02/07/20 Omeprazole 10 mg PO BID 07/20/13 02/07/20 Prazosin [Minipress] 7 mg PO QPM 07/20/13 02/07/20 lisinopriL [Zestril] 10 mg PO QPM 07/20/13 02/07/20 Simvastatin [Zocor] 10 mg PO DAILY 09/08/16 02/07/20 Propranolol HCl [Propranolol HCl 80 mg PO DAILY 07/27/17 02/07/20 ER] Nystatin/Triamcin 1 applic TP BID PRN #1 oint...g. 08/30/17 02/07/20 [Nystatin-Triamcinolone Ointm] SUMAtriptan [Imitrex] 25 mg PO BID PRN #20 tablet 02/02/20 02/07/20 Exenatide Microspheres [Bydureon 2 mg SQ ONCE 02/07/20 02/07/20 Pen] SUMAtriptan [Imitrex] 25 mg PO BID PRN #9 tablet 02/12/20 Cephalexin [Keflex] 500 mg PO QID 7 Days #28 capsule 06/14/20 - Allergies Allergies/Adverse Reactions: Allergies Allergy/AdvReac Type Severity Reaction Status Date / Time Penicillins Allergy Severe Respiratory Verified 06/14/20 17:37 ketorolac tromethamine * Allergy Unknown Verified 06/14/20 17:37 [From Toradol] Sulfa (Sulfonamide Allergy Unknown Verified 06/14/20 17:37 Antibiotics) varenicline tartrate * AdvReac Severe Suicidal Verified 06/14/20 17:37 [From Chantix] ideations quetiapine fumarate * AdvReac Dizziness Verified 06/14/20 17:37 [From Seroquel] sertraline HCl * AdvReac Shakes Verified 06/14/20 17:37 [From Zoloft] sucralose AdvReac SEVERE Verified 06/14/20 17:37 [From Splenda (sucralose)] CHANGE IN MOOD - Social History Does the pt smoke?: Yes Smoking Status: Current every day smoker Does the pt drink ETOH?: No Does the pt have substance abuse?: No - Immunizations Immunizations are current?: Yes Immunizations: TDAP >10years/unknown - POLST Patient has POLST: No POLST Status: Full Code PD ED PE NORMAL - Vitals Vital signs reviewed: Yes - General General: Alert and oriented X 3, No acute distress, Well developed/nourished - HEENT HEENT: PERRL - Neck Neck: Supple, no meningeal sign - Cardiac Cardiac: RRR, No murmur, Strong equal pulses - Respiratory Respiratory: No respiratory distress, Clear bilaterally - Abdomen Abdomen: Normal bowel sounds, Soft, Non tender, Non distended - Derm Derm: Warm and dry, Other (tattoos in place on dorsal right forearm. mild erythema and ttp, no streaking, no lad, mild swelling, no fluctuance or induration.) - Extremities Extremities: No deformity, Other (tattoos on dorsal right forearm, with mild erythema and swelling, comparments soft, no fluctuation/induration, R/M/U motor and sensory exam intact. nv intact.) - Neuro Neuro: Alert and oriented X 3 - Psych Psych: Normal mood, Normal affect Results - Vitals Vitals: Vital Signs - 24 hr 06/14/20 17:31 Temperature 36.7 C Heart Rate 80 Respiratory 16 Rate Blood Pressure 150/109 H O2 Saturation 97 Oxygen O2 Source Room air PD MEDICAL DECISION MAKING - ED course Complexity details: considered differential (early cellulitis. will treat with oral keflex. f/u w pcp tomorrow. patient states taken keflex previously. reports allergy to sulfa but no other medications.) Departure - Departure Disposition: 01 Home, Self Care Clinical Impression: Cellulitis Qualifiers: Site of cellulitis: extremity Site of cellulitis of extremity: upper extremity Laterality: right Qualified Code(s): L03.113 - Cellulitis of right upper limb Condition: Stable Instructions: Cellulitis Dc Follow-Up: Radha Cuenca DO [Primary Care Provider] - Tomorrow Prescriptions: Cephalexin [Keflex] 500 mg PO QID 7 Days #28 capsule Comments: apply neosporin to affected area 2-3 times daily. call your pcp tomorrow to schedule a follow up. take keflex as directed.
[2020-06-14] MEDS ORDERED: cephALEXin 250 MG CAPSULE PO STA (19:42)
== END 2020-06-14 19:53 | disposition home or self-care (01) ==
LOC: ED 17:28
DX: L03.113 Cellulitis of right upper limb (principal); L81.8 Other specified disorders of pigmentation; I10 Essential (primary) hypertension; E11.9 Type 2 diabetes mellitus without complications; F17.200 Nicotine dependence, unspecified, uncomplicated
CPT/HCPCS: 99282; 99284; A9270